=== PATIENT | male | born 1945 | race Caucasian/White ===

== ENCOUNTER 2019-06-06 12:36 | Inpatient (IN) ==
[2019-06-06 13:04] LABS: Hematocrit 49.3 % (42.0-52.0); Hemoglobin 16.8 gm/dL (13.5-18.0); Mean Corpuscular Hemoglobin 33.7 pg (27-31); Mean Corpuscular Hgb Conc 34.1 g/dl (32-36); Mean Platelet Volume 9.7 fl (8-11.3); Neutrophil # 14.3 K/mm3 (1.3-6.0); Neutrophil % 91.6 % (42-75.0); Platelet Count 324 K/mm3 (150-450); Red Blood Count 4.98 M/mm3 (4.7-6.0); White Blood Count 15.6 K/mm3 (4.0-10.5)
[2019-06-06] MEDS ORDERED: NORMAL SALINE 1,000 ML IV ONE (13:08)
[2019-06-06] MEDS ORDERED: DIPHTH,PERTUSS(ACELL),TET VAC 0.5 ML VIAL IM ONE (13:09)
[2019-06-06 13:12] LABS: Prothrombin Time (Patient) 10.3 Seconds (9.1-10.7)
[2019-06-06 13:15] LABS: INR 1.04 INR (0.92-1.08); Partial Thrombolplastin Time 25.9 Seconds (24-32)
[2019-06-06 13:22] LABS: ALT 57 U/L (19-67); AST 34 U/L (0-48); Albumin * 3.5 gm/dl (3.4-5.0); Alkaline Phosphatase * 106 U/L (50-170); Anion Gap 14.9 mmol/L (6.8-13.8); BUN/Creatinine Ratio 18.1 (9.0-21.6); Bilirubin, Total 1.2 mg/dL (0.0-1.1); Blood Urea Nitrogen 17 mg/dL (6-23); Ca. Corrected For Albumin 9.6 mg/dL (8.4-10.2); Calcium * 9.5 mg/dL (7.9-10.9); Carbon Dioxide 26.2 mmol/L (24-32.6); Chloride 102 mmol/L (97-106); Glucose * 151 mg/dL (70-110); Potassium 4.1 mmol/L (3.4-4.6); Sodium 139 mmol/L (132-142); Total Protein 7.5 gm/dL (6.2-8.2)
[2019-06-06 13:23] LABS: CK Total * 312 U/L (0-259); Troponin I Less than 0.017 ng/mL (0.00-0.10)
[2019-06-06 14:05] LABS: Urine Bilirubin Negative (NEGATIVE); Urine Blood 25 /ul (NEGATIVE); Urine Ketone 15 mg/dL (NEGATIVE); Urine Nitrite Negative (NEGATIVE); Urine Protein 30 mg/dL (NEGATIVE); Urine Specific Gravity >=1.030 SP.GR. (1.005-1.030); Urine Urobilinogen Normal (NORMAL); Urine pH 5.5 pH (5.0-7.0)
[2019-06-06 14:13] LABS: Urine Appearance Clear (CLEAR); Urine Bacteria TRACE; Urine Color Dark Yellow; Urine RBC 0-5 /hpf (0-5); Urine WBC TRACE /hpf (0-5)
[2019-06-06 14:17] LABS: Cocaine Ur Negative (NEGATIVE); Urine Barbiturate Negative (NEGATIVE); Urine Benzodiazepines Negative (NEGATIVE); Urine Opiates Negative (NEGATIVE); Urine PCP Negative (NEGATIVE); Urine THC Negative (NEGATIVE)
--- NOTE | 2019-06-06 14:49 | ERNOTE ---
Trauma/Assault HPI - Narrative Date of Service: 06/06/19 - General Stated Complaint: fall Time Seen by Provider: 06/06/19 12:41 Source: RN notes reviewed, EMS notes reviewed Exam Limitations: clinical condition - Immun/Allergies/Home Medications Immunizations: IMMUNIZATION HX Immunizations Up to Date unknown Allergies/Adverse Reactions: Allergies No Known Allergies Allergy (Verified 06/06/19 15:59) Home Medications: HOME MEDICATIONS Folic Acid 1 mg PO DAILY 07/25/14 [Last Taken Unknown] Thiamine HCl [Vitamin B-1] 100 mg PO DAILY 07/25/14 [Last Taken Unknown] Cholecalciferol (Vitamin D3) [Vitamin D-3] 2,000 unit PO DAILY 11/27/14 [Last Taken Unknown] Multivitamins [Multivitamin Aubrey] 1 cap PO DAILY 11/27/14 [Last Taken Unknown] naproxen 500 mg tablet 500 mg PO BID PRN #60 tab 07/10/18 [Last Taken Unknown] potassium chloride 20 mEq tablet,extended release(part/cryst) See Rx Instructions .ROUTE .COMPLEX #120 tablet 01/31/19 [Last Taken Unknown] diltiazem HCl 300 mg capsule,24 hr,extended release 300 mg PO DAILY #90 cap 04/30/19 [Last Taken Unknown] trazodone 50 mg tablet See Rx Instructions .ROUTE .COMPLEX #90 tablet 04/30/19 [Last Taken Unknown] Finasteride [Proscar] 5 mg PO DAILY 06/06/19 [Last Taken Unknown] - History of Present Illness Narrative: The patient is a 73 year old male who presents via [facility] after being found on the floor in his apartment just [employer]. There are associated symptoms of garbled speech and decreased responsiveness. The patient denies pain when questioned and does not localize to area. There are no alleviating factors. There are no aggravating factors. Previous treatments have included: none. The past medical history includes: AFib, BPH, Gout, HTN and alcohol abuse. The social history is positive for daily alcohol use. The patient has had no known ill contacts. [facility] reports that patient resides in apartment complex in which they were doing checks and upon the landlord entering the dwelling noted patient was lying on the floor. EMS reports there was an empty bottle of vodka near the patient. Patient had limited responsiveness, no vomitus noted around patient and patient was not soiled with urine or stool. Patient upon arrival following commands but has incomprehensible garbled speech. Patient answers appropriately when questioned yes and no questions. Review of Systems - Narrative Narrative: Unable to fully assess due to patient condition. Patient questioned regarding recent illness, pain or vomiting and denies with shaking of head no. Unable to fully assess patient cognition for understanding due to condition to validate appropriateness of answers. Medical History (Last Reviewed 06/06/19 @ 15:46 by GLENIS Condon) Constipation (Chronic) Sarbjit is 73 and has never had a screening colonoscopy. I recommended that he have one but he is afraid to have anesthesia and refuses. He has a Cologuard kit at home that he is never used and I strongly recommended that he use that at least. He understands that if that is positive and he would need a diagnostic colonoscopy. Screening for prostate cancer (Acute) Colon cancer screening (Acute) Medicare annual wellness visit, subsequent (Acute) Knee pain, right (Chronic) Alcoholism (Acute) Onset Date: Unknown [email or web address] Insomnia (Chronic) Onset Date: Unknown Hypertension (Chronic) Onset Date: Unknown BPH (benign prostatic hyperplasia) (Chronic) Onset Date: Unknown Atrial fibrillation (Chronic) Onset Date: Unknown Cataracts, bilateral Onset Date: Unknown Gout Onset Date: Unknown Surgical History: Surgical History (Last Reviewed 06/06/19 @ 15:46 by GLENIS Condon) H/O eye surgery Onset Date: ~12/25/18 both eyes: laser treatment History of cataract surgery Onset Date: ~2014 bilaeral Family History: Family History (Last Reviewed 06/06/19 @ 15:46 by GLENIS Condon) Father , age 80 Cancer liver cancer Mother , age 70's Cancer bladder cancer Brother , age 60's Alcoholism Social History: (Last Reviewed 06/06/19 @ 15:46 by GLENIS Condon) Social History: mcfp: No Marital status: Single lives independently: Yes household members: none current occupational status: retired current occupation: retired Highest education level completed: high school graduate Service: Yes branch: [employer] status: retired Tobacco: Smoking Status: Former smoker Alcohol: alcohol intake: current details: drinks 1/2 gallon vodka every 2 weeks Substance Use: substance use type: does not use Dietary Habits: caffeine: Yes Physical Exam - Physical Exam General Appearance: Present: alert, moderate distress Head Exam: Present: normal inspection, no evidence of injury Eye Exam: Normal inspection: bilateral, PERRL: bilateral, EOMI: bilateral - difficult to assess due to patient no fully following direction for test, Other: left - scleral edema to inner eye, approximately 9 o'clock with appearance of bleb Ears, Nose, Throat: Present: normal except -, dry mucous membranes Neck: Present: normal inspection, nontender, full range of motion Respiratory: Present: no respiratory distress, normal breath sounds, no accessory muscle use, chest nontender, lungs clear Cardiovascular/Chest: Present: tachycardia, irregularly irregular Gastrointestinal/Abdominal: Present: normal bowel sounds, nontender, nondistended, soft, no organomegaly Extremity Exam: Present: normal range of motion - bilateral upper and lower extremities to hip, knee, wrist, elbow and shoulders, no edema Neurological Exam: Present: alert, other - garbled incomprehesible speech, unable to thrust tongue forward, 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 Brother reported that patient kept to himself and is not uncommon for him to go for an extended duration without leaving his home. He has not spoken to him recently. Rn also spoke with howie who states she has not seen patient rec ently. Unable to determine a time of last known well. 06/06/19 15:15 Case reviewed with , will admit due to abnormal CT and exam findings consistent with CVA. I feel that elevation to WBC as well as lactic acid of 3.0 are associated with possible recent CVA and stress of lying on the floor unable to contact help. - Results and Orders Patient's Lab Results:: I have reviewed the patient's lab results. - Vital Signs Patient's Vital Signs:: I have reviewed the patient's vital signs. Vital Signs: Vital Signs 06/06/19 12:39 06/06/19 12:50 06/06/19 13:02 Temperature 36.4 C Pulse Rate 109 H 108 H 104 H Respiratory Rate 21 H 20 Blood Pressure 151/98 H 151/98 H O2 Sat by Pulse Oximetry 95 94 06/06/19 14:17 06/06/19 14:27 06/06/19 14:36 Temperature Pulse Rate 110 H 107 H 112 H Respiratory Rate 23 H 21 H 26 H Blood Pressure 166/102 H 163/97 H O2 Sat by Pulse Oximetry 97 93 94 - EKG EKG #1 EKG: atrial fibrillation - rate 110, premature ventricular contraction, nonspecific ST T wave changes EKG read: Reviewed by me - X-Ray X-Ray #1 X-Ray: chest Interpretation: Reviewed by me X-ray Comments: IMPRESSION: CARDIOMEGALY. LOW LUNG VOLUMES. CHRONIC ELEVATION OF THE RIGHT HEMIDIAPHRAGM. Electronically signed by Valdo Martínez M.D.. - CT/Ultrasound CT/Ultrasound Narrative: IMPRESSION: LEFT MCA TERRITORY INFARCT WITH NO SIGNIFICANT MASS EFFECT OR INTRACRANIAL HEMORRHAGE AT THIS TIME. REMOTE LEFT OCCIPITAL LOBE INFARCT. RIGHT MAXILLARY SINUSITIS. CHRONIC UNDERLYING ATROPHY AND WHITE MATTER MICROVASCULAR ISCHEMIC DISEASE. Electronically signed by Valdo Martínez M.D.. IMPRESSION: MILD MULTILEVEL CERVICAL SPONDYLOSIS. NO ACUTE OSSEOUS PATHOLOGY OTHERWISE IDENTIFIED. Electronically signed by Valdo Martínez M.D.. - Progress/Reassessment Chief Complaint: Fall Progress:: Unchanged Departure Clinical Impression: CVA (cerebral vascular accident) Qualifiers: CVA mechanism: unspecified Qualified Code(s): I63.9 - Cerebral infarction, unspecified - Departure Disposition: Still a patient Condition: Stable Critical Care Time - Critical Care Critical Time Spent:: No
[2019-06-06] MEDS ORDERED: ASPIRIN 300 MG SUPP.RECT RC ONE ×2 (15:11→17:30)
--- NOTE | 2019-06-06 15:39 | HP ---
Chief Complaint - Chief Complaint Date of Service: 06/06/19 Time of Service: 15:38 Chief Complaint: fall History of Present Illness: Sarbjit Ho is a 73-year-old white male, patient of Dr. Jorge, with past medical history of chronic atrial fibrillation, hypertension, gout, benign prostatic hypertrophy, alcoholism, who was admitted on 06/06/2019 because of a fall. Sarbjit is not able to express due to his acute cerebrovascular accident. My history is based on the emergency room report "Pt presents to the ED for reports of a fall for an unknown amount of time. Pt was brought into the ED via [facility], they stated that his land lord Christine Young was doing apartment inspections when she found the pt lying on the floor naked. He lives independently at [facility]. She states that she in unaware of any visitors. Initial presentation, pt is cool to the touch an shivering. Denies any pain, is non-verbal but is able to answer questions with a head nod. Lower and upper extremity stroke assessment is equal but weak. EMS reported an empty bottle of vodka near pt, pt denies any memory of falling and does state that he drinks daily. Initial blood glucose of 132. In the emergency room his blood work showed an elevated WBC of 15.6, normal platelet count CK of 212, BNP of 828. His EKG showed atrial fibrillation with rapid ventricular rate of 116. His chest x-ray showed no acute cardiopulmonary findings except for chronic elevation of hemidiaphragm. He was started on IV fluids and was admitted for further evaluation and treatment. His Head CTS showed left MCA territory infarct involving the left, fronto-temporal as well as part of parietal regions. There is encephalomalacia of remote left occipital lobe infarct. Medical History (Last Reviewed 06/06/19 @ 15:59 by Nemo Ortiz RN) Constipation (Chronic) Sarbjit is 73 and has never had a screening colonoscopy. I recommended that he have one but he is afraid to have anesthesia and refuses. He has a Cologuard kit at home that he is never used and I strongly recommended that he use that at least. He understands that if that is positive and he would need a diagnostic colonoscopy. Screening for prostate cancer (Acute) Colon cancer screening (Acute) Medicare annual wellness visit, subsequent (Acute) Knee pain, right (Chronic) Alcoholism (Acute) Onset Date: Unknown [email or web address] Insomnia (Chronic) Onset Date: Unknown Hypertension (Chronic) Onset Date: Unknown BPH (benign prostatic hyperplasia) (Chronic) Onset Date: Unknown Atrial fibrillation (Chronic) Onset Date: Unknown Cataracts, bilateral Onset Date: Unknown Gout Onset Date: Unknown Surgical History: Surgical History (Last Reviewed 06/06/19 @ 15:59 by Nemo Ortiz RN) H/O eye surgery Onset Date: ~12/25/18 both eyes: laser treatment History of cataract surgery Onset Date: ~2014 bilaeral Family History: Family History (Last Reviewed 06/06/19 @ 15:59 by Nemo Ortiz RN) Father , age 80 Cancer liver cancer Mother , age 70's Cancer bladder cancer Brother , age 60's Alcoholism Social History: (Last Reviewed 06/06/19 @ 15:59 by Nemo Ortiz RN) Social History: long-term: No Marital status: Single lives independently: Yes household members: none current occupational status: retired current occupation: retired Highest education level completed: high school graduate Service: Yes branch: [employer] status: retired Tobacco: Smoking Status: Former smoker Alcohol: alcohol intake: current details: drinks 1/2 gallon vodka every 2 weeks Substance Use: substance use type: does not use Dietary Habits: caffeine: Yes Review Of Systems (GEN) - Review of Systems Generalized/Overall Review: Present: Weakness. Absent: Chills, Fever EENTM: Absent: Blurred Vision Respiratory: Absent: Cough, Shortness of Breath Cardiac: Absent: Chest Pain, Edema, Palpitations Abdominal: Absent: Nausea, Vomiting Genitourinary: Absent: Urgency, Frequency Musculoskeletal: Absent: Joint Pain Neurological: Present: Weakness. Absent: Headache Skin: Absent: Lesions Misc: All systems neg except as marked - Nonverbal but would nod his head or would squeeze my fingers if he agrees. Immunizations: IMMUNIZATION HX Immunizations Up to Date unknown Allergies/Adverse Reactions: Allergies Allergy/AdvReac Type Severity Reaction Status Date / Time No Known Allergies Allergy Verified 06/06/19 15:59 Home Medications: HOME MEDICATIONS Folic Acid 1 mg PO DAILY 07/25/14 [Last Taken Unknown] Thiamine HCl [Vitamin B-1] 100 mg PO DAILY 07/25/14 [Last Taken Unknown] Cholecalciferol (Vitamin D3) [Vitamin D-3] 2,000 unit PO DAILY 11/27/14 [Last Taken Unknown] Multivitamins [Multivitamin Aubrey] 1 cap PO DAILY 11/27/14 [Last Taken Unknown] naproxen 500 mg tablet 500 mg PO BID PRN #60 tab 07/10/18 [Last Taken Unknown] potassium chloride 20 mEq tablet,extended release(part/cryst) See Rx Instructions .ROUTE .COMPLEX #120 tablet 01/31/19 [Last Taken Unknown] diltiazem HCl 300 mg capsule,24 hr,extended release 300 mg PO DAILY #90 cap 04/30/19 [Last Taken Unknown] trazodone 50 mg tablet See Rx Instructions .ROUTE .COMPLEX #90 tablet 04/30/19 [Last Taken Unknown] Finasteride [Proscar] 5 mg PO DAILY 06/06/19 [Last Taken Unknown] Exam - Exam Vital Signs: Vital Signs - Last Taken Temp 36.4 C 06/06/19 12:39 Pulse 99 06/06/19 15:24 Resp 25 H 06/06/19 15:24 BP 173/88 H 06/06/19 15:24 Pulse Ox 99 06/06/19 15:24 Constitutional: Present: Alert, Oriented x3, Cooperative ENT Exam: Present: hearing grossly normal Eye Exam: bilateral eye: normal inspection, PERRL, EOMI Neck: Present: supple. Absent: lymphadenopathy (L) Respiratory: Present: decreased breath sounds, No rales, No wheezing Cardiovascular/Chest: Present: no JVD, no murmur, irregularly irregular Abdomen: Present: Normal bowel sounds, soft, nontender, obese Extremity: Present: no calf tenderness, pedal edema Neurologic: Present: other - Awake alert oriented x3, shallow right nasolabial fold, patient is not able to bring out his tongue where he does have a weak gag reflex graft today, he was able to grossly move his upper and lower extremities. Diagnostic Studies: Abnormal Lab Results 06/06/19 06/06/19 06/06/19 Range/Units 12:53 12:53 12:53 WBC 15.6 H (4.0-10.5) K/mm3 MCH 33.7 H (27-31) pg Immature Gran % (Auto) 0.60 H (0.001-0.429) % Immature Gran # (Auto) 0.09 H (0.000-0.0310) K/mm3 Neutrophils % 91.6 H (42-75.0) % Lymphocytes % 2.4 L (20-51) % Neutrophils # 14.3 H (1.3-6.0) K/mm3 Lymphocytes # 0.37 L (1.5-3.5) k/mm3 Anion Gap 14.9 H (6.8-13.8) mmol/L Random Glucose 151 H (70-110) mg/dL Lactic Acid, Venous 3.0 H* (0.4-2.0) mmol/L Total Bilirubin 1.2 H (0.0-1.1) mg/dL Creatine Kinase 312 H (0-259) U/L B-Natriuretic Peptide (5-650) pg/mL Procalcitonin (0.05-0.50) ng/mL Urine Protein (NEGATIVE) mg/dL Urine Blood (NEGATIVE) /ul 06/06/19 06/06/19 06/06/19 Range/Units 12:53 12:53 13:55 WBC (4.0-10.5) K/mm3 MCH (27-31) pg Immature Gran % (Auto) (0.001-0.429) % Immature Gran # (Auto) (0.000-0.0310) K/mm3 Neutrophils % (42-75.0) % Lymphocytes % (20-51) % Neutrophils # (1.3-6.0) K/mm3 Lymphocytes # (1.5-3.5) k/mm3 Anion Gap (6.8-13.8) mmol/L Random Glucose (70-110) mg/dL Lactic Acid, Venous (0.4-2.0) mmol/L Total Bilirubin (0.0-1.1) mg/dL Creatine Kinase (0-259) U/L B-Natriuretic Peptide 878 H (5-650) pg/mL Procalcitonin 0.69 H (0.05-0.50) ng/mL Urine Protein 30 H (NEGATIVE) mg/dL Urine Blood 25 H (NEGATIVE) /ul Laboratory Results WBC 15.6 K/mm3 (4.0-10.5) H 06/06/19 12:53 RBC 4.98 M/mm3 (4.7-6.0) 06/06/19 12:53 Hgb 16.8 gm/dL (13.5-18.0) 06/06/19 12:53 Hct 49.3 % (42.0-52.0) 06/06/19 12:53 MCV 99.0 fl (78-100) 06/06/19 12:53 MCH 33.7 pg (27-31) H 06/06/19 12:53 MCHC 34.1 g/dl (32-36) 06/06/19 12:53 RDW 13.0 % (11.5-14.0) 06/06/19 12:53 Plt Count 324 K/mm3 (150-450) 06/06/19 12:53 MPV 9.7 fl (8-11.3) 06/06/19 12:53 Immature Gran % (Auto) 0.60 % (0.001-0.429) H 06/06/19 12:53 Immature Gran # (Auto) 0.09 K/mm3 (0.000-0.0310) H 06/06/19 12:53 Neutrophils % 91.6 % (42-75.0) H 06/06/19 12:53 Lymphocytes % 2.4 % (20-51) L 06/06/19 12:53 Monocytes % 5.3 % (0.0-9) 06/06/19 12:53 Eosinophils % 0.0 % (0.0-3.0) 06/06/19 12:53 Basophils % 0.1 % (0.0-1.0) 06/06/19 12:53 Nucleated RBC % 0.0 k/mm3 (0-1) 06/06/19 12:53 Neutrophils # 14.3 K/mm3 (1.3-6.0) H 06/06/19 12:53 Lymphocytes # 0.37 k/mm3 (1.5-3.5) L 06/06/19 12:53 Monocytes # 0.8 k/mm3 (0.0-1.0) 06/06/19 12:53 Eosinophils # 0.0 k/mm3 (0.0-0.7) 06/06/19 12:53 Absolute Basophils 0.0 k/mm3 (0.0-0.1) 06/06/19 12:53 PT 10.3 Seconds (9.1-10.7) 06/06/19 12:53 INR (Anticoag Therapy) 1.04 INR (0.92-1.08) 06/06/19 12:53 PTT (Inder) 25.9 Seconds (24-32) 06/06/19 12:53 Sodium 139 mmol/L (132-142) 06/06/19 12:53 Plasma Sodium 140 mmol/L (130-142) 06/06/19 12:53 Potassium 4.1 mmol/L (3.4-4.6) 06/06/19 12:53 Chloride 102 mmol/L (97-106) 06/06/19 12:53 Carbon Dioxide 26.2 mmol/L (24-32.6) 06/06/19 12:53 Anion Gap 14.9 mmol/L (6.8-13.8) H 06/06/19 12:53 BUN 17 mg/dL (6-23) 06/06/19 12:53 Creatinine 0.94 mg/dL (0.4-1.4) 06/06/19 12:53 Est GFR (Non-Af Amer) 83 mL/min (60-130) 06/06/19 12:53 BUN/Creatinine Ratio 18.1 (9.0-21.6) 06/06/19 12:53 Random Glucose 151 mg/dL (70-110) H 06/06/19 12:53 Lactic Acid, Venous 3.0 mmol/L (0.4-2.0) H* 06/06/19 12:53 Calcium 9.5 mg/dL (7.9-10.9) 06/06/19 12:53 Calcium Adj for Albumin 9.6 mg/dL (8.4-10.2) 06/06/19 12:53 Total Bilirubin 1.2 mg/dL (0.0-1.1) H 06/06/19 12:53 AST 34 U/L (0-48) 06/06/19 12:53 ALT 57 U/L (19-67) 06/06/19 12:53 Alkaline Phosphatase 106 U/L (50-170) 06/06/19 12:53 Ammonia Less than 17.0 mcmol/L (11-35) 06/06/19 12:53 Creatine Kinase 312 U/L (0-259) H 06/06/19 12:53 Troponin I Less than 0.017 ng/mL (0.00-0.10) 06/06/19 12:53 B-Natriuretic Peptide 878 pg/mL (5-650) H 06/06/19 12:53 Total Protein 7.5 gm/dL (6.2-8.2) 06/06/19 12:53 Albumin 3.5 gm/dl (3.4-5.0) 06/06/19 12:53 Procalcitonin 0.69 ng/mL (0.05-0.50) H 06/06/19 12:53 Urine Color Dark yellow 06/06/19 13:55 Urine Appearance Clear (CLEAR) 06/06/19 13:55 Urine pH 5.5 pH (5.0-7.0) 06/06/19 13:55 Ur Specific [place] >=1.030 SP.GR. (1.005-1.030) 06/06/19 13:55 Urine Protein 30 mg/dL (NEGATIVE) H 06/06/19 13:55 Urine Glucose (UA) Negative mg/dL (NEGATIVE) 06/06/19 13:55 Urine Ketones 15 mg/dL (NEGATIVE) 06/06/19 13:55 Urine Blood 25 /ul (NEGATIVE) H 06/06/19 13:55 Urine Nitrate Negative (NEGATIVE) 06/06/19 13:55 Urine Bilirubin Negative mg/dl (NEGATIVE) 06/06/19 13:55 Prot Sulfosalicylic Acd 1+ mg/dL (0) 06/06/19 13:55 Urine Urobilinogen Normal EU/dl (NORMAL) 06/06/19 13:55 Ur Leukocyte Esterase Negative /ul (NEGATIVE) 06/06/19 13:55 Urine RBC 0-5 /hpf (0-5) 06/06/19 13:55 Urine WBC Trace /hpf (0-5) 06/06/19 13:55 Ur Epithelial Cells 0-5 /hpf (0-5) 06/06/19 13:55 Urine Bacteria Trace (NONE) 06/06/19 13:55 Urine Culture Comments Culture to follow 06/06/19 13:55 Urine Opiates Screen Negative (NEGATIVE) 06/06/19 13:55 Barbiturate Screen Negative (NEGATIVE) 06/06/19 13:55 Ur Phencyclidine Scrn Negative (NEGATIVE) 06/06/19 13:55 Urine Amphetamine Negative (NEGATIVE) 06/06/19 13:55 U Benzodiazepines Scrn Negative (NEGATIVE) 06/06/19 13:55 Urine Cocaine Screen Negative (NEGATIVE) 06/06/19 13:55 Urine Marijuana (THC) Negative (NEGATIVE) 06/06/19 13:55 Ethyl Alcohol 3.0 mg/dL (0.0-10.0) 06/06/19 12:53 Assessment/Plan - Narrative Narrative: Vic Schaffer is a 73-year-old white male patient of Dr. Jorge was found on the floor for an undetermined length of time and was brought by EMS to our emergency room. His head CT scan showed an acute cerebrovascular accident involving the left middle cerebral artery territory. We will get speech therapy/physical therapy/Occupational Therapy evaluation and treatment. We will get an MRI of the brain in the morning. We will schedule him a carotid ultrasound as well as an echocardiogram with bubble study. We will start him on aspirin RC and start atorvastatin as soon as oral medications is deemed safe to be administered. . He has chronic atrial fibrillation and his past medical history and he is not on an anticoagulant. He will likely need anticoagulation as his CVA could be cardioembolic unless there is really a serious contraindication. We will review his medical records for such. - Assessment/Plan (1) Acute ischemic cerebrovascular accident (CVA) involving left middle cerebral artery territory Problem: Acute (2) Alcoholism Problem: Acute (3) Hypertension Problem: Chronic Qualifiers: Hypertension type: essential hypertension Qualified Code(s): I10 - Essential (primary) hypertension (4) BPH (benign prostatic hyperplasia) Problem: Chronic (5) Atrial fibrillation Problem: Chronic Qualifiers: Atrial fibrillation type: chronic
[2019-06-06] MEDS: ENOXAPARIN SODIUM 40 MG/0.4 ML SYRG SC SCH (17:29)
[2019-06-06] MEDS: DEXTROSE 5%-NORMAL SALINE 1,000 ML IV PRN (18:25)
[2019-06-07] MEDS: DEXTROSE 5%-NORMAL SALINE 1,000 ML IV PRN (04:23)
[2019-06-07 06:31] LABS: Hematocrit 46.8 % (42.0-52.0); Hemoglobin 16.3 gm/dL (13.5-18.0); Mean Cell Volume 96.7 fl (78-100); Mean Corpuscular Hemoglobin 33.7 pg (27-31); Mean Corpuscular Hgb Conc 34.8 g/dl (32-36); Mean Platelet Volume 9.9 fl (8-11.3); Neutrophil # 11.8 K/mm3 (1.3-6.0); Platelet Count 300 K/mm3 (150-450); Red Blood Count 4.84 M/mm3 (4.7-6.0); Red Cell Distribution Width 12.9 % (11.5-14.0); White Blood Count 13.7 K/mm3 (4.0-10.5)
[2019-06-07 06:36] LABS: Anion Gap 11.8 mmol/L (6.8-13.8); BUN/Creatinine Ratio 13.8 (9.0-21.6); Calcium * 8.2 mg/dL (7.9-10.9); Carbon Dioxide 27.7 mmol/L (24-32.6); Estimated Creat Clear 107.9
[2019-06-07 06:52] LABS: Potassium 2.5 mmol/L (3.4-4.6)
[2019-06-07] MEDS: POTASSIUM CHLORIDE IN WATER 100 ML IV SCH ×3 (09:47→11:59)
--- NOTE | 2019-06-07 10:52 | PN ---
Subjective - Date and Time Seen Date: 06/07/19 Time: 10:46 Subjective Narrative: patient continue to have problem with expressing himself. for MRI/Echo/CUS today Objective - Review of Systems Generalized/Overall Review: Reports: Weakness. Denies: Chills, Fever EENTM: Denies: Blurred Vision Respiratory: Denies: Cough, Shortness of Breath Cardiac: Denies: Chest Pain, Edema, Palpitations Abdominal: Denies: Nausea, Vomiting Genitourinary Symptoms: Denies: Urgency, Frequency Musculoskeletal Complaints: Denies: Joint Pain Neurological: Denies: Headache Skin: Denies: Lesions, Rash Misc: All systems neg except as marked - patient unable to express himself but is able to undestand by nodding - Vitals Vitals: Last Vital Signs Temp 37.9 C 06/07/19 10:00 Pulse 96 06/07/19 10:00 Resp 19 06/07/19 10:00 BP 155/98 H 06/07/19 10:00 Pulse Ox 97 06/07/19 10:00 - Abnormal Lab Findings Abnormal Lab Findings: Abnormal Lab Results 06/06/19 06/06/19 06/06/19 Range/Units 12:53 12:53 12:53 WBC 15.6 H (4.0-10.5) K/mm3 MCH 33.7 H (27-31) pg Immature Gran % (Auto) 0.60 H (0.001-0.429) % Immature Gran # (Auto) 0.09 H (0.000-0.0310) K/mm3 Neutrophils % 91.6 H (42-75.0) % Lymphocytes % 2.4 L (20-51) % Neutrophils # 14.3 H (1.3-6.0) K/mm3 Lymphocytes # 0.37 L (1.5-3.5) k/mm3 ESR (0-10) mm/hr Potassium (3.4-4.6) mmol/L Anion Gap 14.9 H (6.8-13.8) mmol/L Random Glucose 151 H (70-110) mg/dL Lactic Acid, Venous 3.0 H* (0.4-2.0) mmol/L Total Bilirubin 1.2 H (0.0-1.1) mg/dL Creatine Kinase 312 H (0-259) U/L C-Reactive Prot, Quant (0.0-0.9) mg/dL B-Natriuretic Peptide (5-650) pg/mL Procalcitonin (0.05-0.50) ng/mL Urine Protein (NEGATIVE) mg/dL Urine Blood (NEGATIVE) /ul 06/06/19 06/06/19 06/06/19 Range/Units 12:53 12:53 12:53 WBC (4.0-10.5) K/mm3 MCH (27-31) pg Immature Gran % (Auto) (0.001-0.429) % Immature Gran # (Auto) (0.000-0.0310) K/mm3 Neutrophils % (42-75.0) % Lymphocytes % (20-51) % Neutrophils # (1.3-6.0) K/mm3 Lymphocytes # (1.5-3.5) k/mm3 ESR 21 H (0-10) mm/hr Potassium (3.4-4.6) mmol/L Anion Gap (6.8-13.8) mmol/L Random Glucose (70-110) mg/dL Lactic Acid, Venous (0.4-2.0) mmol/L Total Bilirubin (0.0-1.1) mg/dL Creatine Kinase (0-259) U/L C-Reactive Prot, Quant (0.0-0.9) mg/dL B-Natriuretic Peptide 878 H (5-650) pg/mL Procalcitonin 0.69 H (0.05-0.50) ng/mL Urine Protein (NEGATIVE) mg/dL Urine Blood (NEGATIVE) /ul 06/06/19 06/06/19 06/07/19 Range/Units 12:53 13:55 06:26 WBC 13.7 H (4.0-10.5) K/mm3 MCH 33.7 H (27-31) pg Immature Gran % (Auto) 0.50 H (0.001-0.429) % Immature Gran # (Auto) 0.07 H (0.000-0.0310) K/mm3 Neutrophils % 86.0 H (42-75.0) % Lymphocytes % 6.6 L (20-51) % Neutrophils # 11.8 H (1.3-6.0) K/mm3 Lymphocytes # 0.90 L (1.5-3.5) k/mm3 ESR (0-10) mm/hr Potassium (3.4-4.6) mmol/L Anion Gap (6.8-13.8) mmol/L Random Glucose (70-110) mg/dL Lactic Acid, Venous (0.4-2.0) mmol/L Total Bilirubin (0.0-1.1) mg/dL Creatine Kinase (0-259) U/L C-Reactive Prot, Quant 8.0 H (0.0-0.9) mg/dL B-Natriuretic Peptide (5-650) pg/mL Procalcitonin (0.05-0.50) ng/mL Urine Protein 30 H (NEGATIVE) mg/dL Urine Blood 25 H (NEGATIVE) /ul 06/07/19 06/07/19 Range/Units 06:26 06:26 WBC (4.0-10.5) K/mm3 MCH (27-31) pg Immature Gran % (Auto) (0.001-0.429) % Immature Gran # (Auto) (0.000-0.0310) K/mm3 Neutrophils % (42-75.0) % Lymphocytes % (20-51) % Neutrophils # (1.3-6.0) K/mm3 Lymphocytes # (1.5-3.5) k/mm3 ESR (0-10) mm/hr Potassium 2.5 L D (3.4-4.6) mmol/L Anion Gap (6.8-13.8) mmol/L Random Glucose 119 H (70-110) mg/dL Lactic Acid, Venous (0.4-2.0) mmol/L Total Bilirubin (0.0-1.1) mg/dL Creatine Kinase 339 H (0-259) U/L C-Reactive Prot, Quant (0.0-0.9) mg/dL B-Natriuretic Peptide (5-650) pg/mL Procalcitonin (0.05-0.50) ng/mL Urine Protein (NEGATIVE) mg/dL Urine Blood (NEGATIVE) /ul - Exam Constitutional: Present: Alert, Oriented x3, Cooperative ENT Exam: Present: hearing grossly normal Neck: Present: supple. Absent: lymphadenopathy (R), lymphadenopathy (L) Respiratory: Present: decreased breath sounds, No rales, No wheezing Cardiovascular/Chest: Present: no JVD, no murmur, irregularly irregular Abdomen: Present: Normal bowel sounds, soft, nontender, nondistended Extremity: Present: no pedal edema, no calf tenderness Neurologic: Present: no motor/sensory deficits - grossly, oriented x 3, facial droop, other - expressive aphasia vs dysarthria Cauti Physician Documentation - Urinary Catheter Management Condom Date of Insertion: 06/06/19 Time of Insertion: 17:30 Assessment/Plan Plan Narrative: Sarbjit was admitted for Acute CVA involving the LMCA territory wit expressive aphasia vs motor dysarthria. He was started on ASA yesterday NV but will likely need anticoagualtion due to his chromic AFib but will delay inititiation to prevent converting his ischemic stroke to a hemorrhagic one. He is for ST/PT/OT eval and tx today. Will follow up MRI/Echo/CUS results. - Problems/Diagnosis (1) Acute ischemic cerebrovascular accident (CVA) involving left middle cerebral artery territory Problem: Acute Narrative: got ASA NV yesterday. for MRI/CUS/Echo with bubble study. He may need anticoagulation as this could be cardioembolic from his AFib but will likely delay it for 2-4 weeks due to increase risk of converting his ischemic stroke to an hemorrhagic one. (2) Expressive aphasia Problem: Acute Narrative: versus motor dysarthria (3) Alcoholism Problem: Acute Narrative: on alcohol withdrawal protocol (4) Hypertension Problem: Chronic Qualifiers: Hypertension type: essential hypertension Qualified Code(s): I10 - Essential (primary) hypertension (5) BPH (benign prostatic hyperplasia) Problem: Chronic (6) Atrial fibrillation Problem: Chronic Qualifiers: Atrial fibrillation type: chronic (7) Elevated CK Problem: Acute
[2019-06-07] MEDS: POTASSIUM CHLORIDE 20 MEQ in DEXTROSE 5%-NORMAL SALINE 990 ML IV SCH ×3 (13:07→21:39)
[2019-06-07] MEDS ORDERED: DILTIAZEM HCL 120 MG CAP.SR.24H PO SCH (14:00)
[2019-06-07] MEDS: FOLIC ACID 1 MG TABLET PO SCH (15:17)
[2019-06-07] MEDS: FINASTERIDE 5 MG TABLET PO SCH (15:19)
[2019-06-07] MEDS: ENOXAPARIN SODIUM 40 MG/0.4 ML SYRG SC SCH (16:44)
[2019-06-07] MEDS: POTASSIUM CHLORIDE 20 MEQ TABLET.SA PO SCH (20:47)
[2019-06-08] MEDS ORDERED: DILTIAZEM HCL 180 MG CAP.SR.24H PO SCH (03:30)
[2019-06-08] MEDS: POTASSIUM CHLORIDE 20 MEQ in DEXTROSE 5%-NORMAL SALINE 990 ML IV SCH ×3 (05:48→22:23)
[2019-06-08 06:43] LABS: Hematocrit 48.9 % (42.0-52.0); Hemoglobin 16.6 gm/dL (13.5-18.0); Mean Corpuscular Hemoglobin 33.6 pg (27-31); Mean Corpuscular Hgb Conc 33.9 g/dl (32-36); Neutrophil # 8.4 K/mm3 (1.3-6.0); Neutrophil % 80.3 % (42-75.0); Platelet Count 289 K/mm3 (150-450); Red Blood Count 4.94 M/mm3 (4.7-6.0); Red Cell Distribution Width 13.1 % (11.5-14.0); White Blood Count 10.5 K/mm3 (4.0-10.5)
[2019-06-08 06:53] LABS: Anion Gap 9.8 mmol/L (6.8-13.8); BUN/Creatinine Ratio 9.6 (9.0-21.6); Calcium * 8.4 mg/dL (7.9-10.9); Carbon Dioxide 29.3 mmol/L (24-32.6); Estimated Creat Clear 84.5; Potassium 3.1 mmol/L (3.4-4.6)
[2019-06-08] MEDS ORDERED: DILTIAZEM HCL 300 MG PO SCH (09:00)
[2019-06-08] MEDS: POTASSIUM CHLORIDE 20 MEQ TABLET.SA PO SCH ×2 (09:09→21:28)
[2019-06-08] MEDS: THIAMINE HCL 100 MG TABLET PO SCH (09:10)
[2019-06-08] MEDS: FOLIC ACID 1 MG TABLET PO SCH (09:10)
[2019-06-08] MEDS: FINASTERIDE 5 MG TABLET PO SCH (09:11)
--- NOTE | 2019-06-08 09:19 | PN ---
Subjective - Date and Time Seen Date: 06/08/19 Time: 08:15 Subjective Narrative: Patient unable to answer questions, but he is alert and follows directions appropriately. He had some high blood pressure overnight and his home Cardizem dose was restarted. No new concerns. Objective - Review of Systems Generalized/Overall Review: Denies: Fever Respiratory: Denies: Cough, Shortness of Breath Cardiac: Denies: Chest Pain, Edema Abdominal: Denies: Nausea, Vomiting Genitourinary Symptoms: Reports: No Symptoms Reported Neurological: Reports: Weakness - leg, Other - Dysphasia - Vitals Vitals: Last Vital Signs Temp 36.1 C 06/08/19 02:26 Pulse 97 06/08/19 04:48 Resp 24 H 06/08/19 02:26 BP 162/94 H 06/08/19 03:46 Pulse Ox 92 L 06/08/19 02:26 - Abnormal Lab Findings Abnormal Lab Findings: Abnormal Lab Results 06/08/19 06/08/19 Range/Units 06:37 06:37 MCH 33.6 H (27-31) pg Immature Gran % (Auto) 0.50 H (0.001-0.429) % Immature Gran # (Auto) 0.05 H (0.000-0.0310) K/mm3 Neutrophils % 80.3 H (42-75.0) % Lymphocytes % 9.9 L (20-51) % Neutrophils # 8.4 H (1.3-6.0) K/mm3 Lymphocytes # 1.04 L (1.5-3.5) k/mm3 Potassium 3.1 L (3.4-4.6) mmol/L Random Glucose 121 H (70-110) mg/dL - Exam Constitutional: Present: Alert, No distress, Elderly Respiratory: Present: lungs clear, normal breath sounds Cardiovascular/Chest: Present: regular rate, rhythm Abdomen: Present: soft, nontender Extremity: Present: other - Limited ability to lift legs off the bed. No deficit in range of motion of arms.. Absent: lower extremity edema Neurologic: Present: aphasia Eye contact: Present: good eye contact Cauti Physician Documentation - Urinary Catheter Management Condom Date of Insertion: 06/07/19 Time of Insertion: 12:00 Assessment/Plan - Problems/Diagnosis (1) Acute ischemic cerebrovascular accident (CVA) involving left middle cerebral artery territory Problem: Acute Narrative: Today is day #3 of admission (admitted 06/06). He has been working with PT and OT, and anticipate he will go to a rehab facility on discharge. Would like to keep his blood pressure right where it is right now, to avoid worsening of his hemorrhagic stroke, or insufficient blood flow in the region of his recent stroke. He was independent at baseline. (2) Expressive aphasia Problem: Acute Narrative: Continue OT. (3) Hypertension Problem: Chronic Qualifiers: Hypertension type: essential hypertension Qualified Code(s): I10 - Essential (primary) hypertension Narrative: His home dose of Cardizem, 300 mg, was restarted this morning for elevated blood pressures overnight. Would like to keep his pressures around 150/90. (4) Atrial fibrillation Problem: Chronic Qualifiers: Atrial fibrillation type: chronic Narrative: Continue Cardizem. He is not anticoagulated right now as he just had a hemorrhagic stroke. (5) Alcoholism Problem: Acute Narrative: Chart review shows he has a history of alcoholism. A empty bottle of liquor was found next to him by EMS. CIWA scores haven't been obtained yet today, but his highest score has been 6. (6) Hypokalemia Problem: Acute Narrative: K+ this morning was 3.1. will need to ensure he can swallow po replacement, and if not, will replace via IV.
[2019-06-09] MEDS: POTASSIUM CHLORIDE 20 MEQ in DEXTROSE 5%-NORMAL SALINE 990 ML IV SCH ×3 (06:46→23:50)
[2019-06-09 07:45] LABS: Albumin * 2.8 gm/dl (3.4-5.0); Anion Gap 8.9 mmol/L (6.8-13.8); Bilirubin, Total 0.7 mg/dL (0.0-1.1); Ca. Corrected For Albumin 9.1 mg/dL (8.4-10.2); Calcium * 8.5 mg/dL (7.9-10.9); Carbon Dioxide 28.5 mmol/L (24-32.6); Potassium 3.4 mmol/L (3.4-4.6); Total Protein 6.4 gm/dL (6.2-8.2)
--- NOTE | 2019-06-09 09:24 | PN ---
Subjective - Date and Time Seen Date: 06/09/19 Time: 09:45 Subjective Narrative: He remains aphasic. He was able to walk 100 feet with physical therapy. No other complaints. He'd prefer to go home after DC. Objective - Review of Systems Generalized/Overall Review: Denies: Fever Respiratory: Reports: Cough, Shortness of Breath Cardiac: Reports: Chest Pain. Denies: Edema Abdominal: Reports: Vomiting, Abdominal Pain Genitourinary Symptoms: Reports: No Symptoms Reported Neurological: Reports: Weakness, Other - aphasia - Vitals Vitals: Last Vital Signs Temp 36.7 C 06/08/19 23:00 Pulse 89 06/09/19 07:00 Resp 16 06/09/19 07:00 BP 146/72 06/09/19 07:00 Pulse Ox 96 06/09/19 07:00 - Abnormal Lab Findings Abnormal Lab Findings: Abnormal Lab Results 06/09/19 Range/Units 07:13 Random Glucose 119 H (70-110) mg/dL Albumin 2.8 L (3.4-5.0) gm/dl - Exam Constitutional: Present: Alert, Cooperative, No distress Respiratory: Present: lungs clear, normal breath sounds Cardiovascular/Chest: Present: regular rate, rhythm Abdomen: Present: soft, nontender Extremity: Absent: lower extremity edema Eye contact: Present: good eye contact, other - unable to speak Cauti Physician Documentation - Urinary Catheter Management Condom Date of Insertion: 06/07/19 Time of Insertion: 12:00 Date of Removal: 06/08/19 Time of Removal: 08:00 Assessment/Plan - Problems/Diagnosis (1) Acute ischemic cerebrovascular accident (CVA) involving left middle cerebral artery territory Problem: Acute Narrative: He is working with PT, and able to walk. Per discussion with his therapist, he does not appear strong enough to be independent yet, but Mr Ho strongly prefers to return home after DC. He denies difficulty swallowing, but he had deficits on his swallow eval with speech therapy. He was being fed by nursing staff this morning, so his ability to maintain nutrition on his own is questionable. Is currently given a nectar thick/pureed diet, per his speech therapy eval. Will continue PT/OT, and daily discussions regarding discharge planning. He is unable to speak, but he nodded "yes" when asked if he was able to write. I do not know if this has actually been tested. If he continues to decline rehab placement on DC, will need to ensure he is able to perform ADLs. His CVA was hemorrhagic, and anticoagulation has been held. Will need to discuss risks vs benefits of restarting with him. he is anticoagulated for afib. (2) Expressive aphasia Problem: Acute (3) Hypertension Problem: Chronic Qualifiers: Hypertension type: essential hypertension Qualified Code(s): I10 - Marilyn fajardomone (primary) hypertension Narrative: BP 129/92 this morning, which has been a gradual decrease since admission on 06/06. Would prefer his BP to be in the 140's/90's, to avoid reduced blood flow in the region of his recent stroke. If his BP reduced further, will lower his cardizem dose. (4) Atrial fibrillation Problem: Chronic Qualifiers: Atrial fibrillation type: chronic Narrative: Is prescribed 300 mg daily cardizem. Recorded HR this morning of 104. (5) Alcoholism Problem: Acute Narrative: CIWA score today of 0. He is receiving daily thiamine. (6) Hypokalemia Problem: Acute Narrative: K+ today of 3.4, up from 3.1 yesterday. Continue po replacement with 40 bid KCl. Recheck tomorrow.
[2019-06-09] MEDS: FOLIC ACID 1 MG TABLET PO SCH (09:54)
[2019-06-09] MEDS: THIAMINE HCL 100 MG TABLET PO SCH (09:54)
[2019-06-09] MEDS: DILTIAZEM HCL PO SCH ×2 (09:54)
[2019-06-09] MEDS: POTASSIUM CHLORIDE 20 MEQ TABLET.SA PO SCH ×2 (09:55→20:30)
[2019-06-09] MEDS: FINASTERIDE 5 MG TABLET PO SCH (09:56)
[2019-06-10] MEDS: POTASSIUM CHLORIDE 20 MEQ in DEXTROSE 5%-NORMAL SALINE 990 ML IV SCH (07:16)
[2019-06-10 07:36] LABS: Anion Gap 13.5 mmol/L (6.8-13.8); BUN/Creatinine Ratio 9.4 (9.0-21.6); Calcium * 9.3 mg/dL (7.9-10.9); Carbon Dioxide 26.6 mmol/L (24-32.6); Estimated Creat Clear 82.5; Potassium 4.1 mmol/L (3.4-4.6)
--- NOTE | 2019-06-10 07:47 | PN ---
Subjective - Date and Time Seen Date: 06/10/19 Time: 07:44 Subjective Narrative: He reports his speech isn't changing. He is feeding himself pureed breakfast. No new concerns. Objective - Review of Systems Generalized/Overall Review: Denies: Fever Respiratory: Denies: Cough, Shortness of Breath Cardiac: Denies: Chest Pain, Edema Abdominal: Denies: Vomiting Genitourinary Symptoms: Reports: No Symptoms Reported Musculoskeletal Complaints: Reports: No Symptoms Reported Neurological: Reports: Other - aphasia Skin: Reports: Other - purplish discoloration to bilateral lower legs - Vitals Vitals: Last Vital Signs Temp 36.5 C 06/10/19 06:23 Pulse 79 06/10/19 06:23 Resp 16 06/10/19 06:23 BP 163/88 H 06/10/19 06:23 Pulse Ox 96 06/10/19 06:23 - Abnormal Lab Findings Abnormal Lab Findings: Abnormal Lab Results 06/09/19 06/10/19 Range/Units 07:13 07:10 Plasma Sodium 143 H (130-142) mmol/L Random Glucose 119 H 137 H (70-110) mg/dL Albumin 2.8 L (3.4-5.0) gm/dl - Exam Constitutional: Present: Alert, Cooperative, Elderly Respiratory: Present: normal breath sounds, no respiratory distress Cardiovascular/Chest: Present: regular rate, rhythm Abdomen: Present: soft, nontender Extremity: Absent: lower extremity edema Skin Exam: Present: other - red/purple discoloration of bilateral lower legs Eye contact: Present: good eye contact Thoughts: Present: other - aphasic Cauti Physician Documentation - Urinary Catheter Management Condom Date of Insertion: 06/07/19 Time of Insertion: 12:00 Date of Removal: 06/08/19 Time of Removal: 08:00 Assessment/Plan - Problems/Diagnosis (1) Acute ischemic cerebrovascular accident (CVA) involving left middle cerebral artery territory Problem: Acute Narrative: Was admitted on 06/06 after being found at home via welfare check with garbled speech, and imaging revealed "IMPRESSION: LARGE AREA OF RESTRICTED DIFFUSION IN THE LEFT FRONTAL LOBE IN THE LEFT MCA DISTRIBUTION CONSISTENT WITH ACUTE/SUBACUTE INFARCTION. SOME BLOOMING ARTIFACT SEEN WITHIN THE CENTRAL PORTION OF THIS INFARCT SUGGESTING LATE SUBACUTE BLOOD PRODUCTS INDICATIVE OF MILD HEMORRHAGIC CONVERSION. HOWEVER, NO ASSOCIATED MASS EFFECT OR COMPLICATION." He is able to ambulate with PT, and was feeding himself pureed breakfast today. Speech eval showed "Dysphagia Evaluation Summary: The patient displayed severe s/s of aspiration with thin liquids, characterized by multiple wet, reflexive coughing. The patient displayed moderate-severe s/s of oral dysphagia with soft textures, characterized by difficulty chewing, oral holding, and pocketing. The patient should consume nectar thickened liquids, and pureed textures." He denies problems swallowing, but his evaluation says otherwise. Appreciate our speech and physical therapists evaluations and recommendations. Mr. Ho would very much prefer to go home after DC, but he lives alone. I suspect he may not be able to maintain nutrition and hydration with his deficits. He is also at risk to aspirate. Would also appreciate speech therapy evaluation to help determine his cognitive status. If he agrees to rehab placement, he could be DC'd tomorrow. (2) Expressive aphasia Problem: Acute (3) Hypertension Problem: Chronic Qualifiers: Hypertension type: essential hypertension Qualified Code(s): I10 - Essential (primary) hypertension Narrative: With his recent hemorragic stroke, would like his BP to be around 150/90. Highly elevated pressure could worsen his hemorrhage. "Normal" BP may be too low for him, and reduce blood flow in the penumbra of his CVA. He is prescribed 300 mg cardizem for his afib, which has been managing his BP thus far. (4) Atrial fibrillation Problem: Chronic Qualifiers: Atrial fibrillation type: chronic Narrative: HR has been controlled on his home 300 mg cardizem. Holding lovenox due to recent hemorrhagic CVA. Chart review shows he was not anticoagulated prior to this admission. (5) Alcoholism Problem: Acute Narrative: Per chart review, an empty bottle of liquor was found next to him by EMS. Ciwa scores have been 0 yesterday and today, and he does not appear to be withdrawing. Continue 100 mg thiamine daily. (6) Hypokalemia Problem: Resolved Narrative: K+ this morning of 4.1, and IV KCl was stopped. Will continue po replacement for now, as he's been getting both po and IV KCl since admission. Can DC if he maintains appropriate levels.
[2019-06-10] MEDS: DILTIAZEM HCL PO SCH ×2 (09:16)
[2019-06-10] MEDS: POTASSIUM CHLORIDE 20 MEQ TABLET.SA PO SCH ×2 (09:16→20:39)
[2019-06-10] MEDS: FOLIC ACID 1 MG TABLET PO SCH (09:16)
[2019-06-10] MEDS: THIAMINE HCL 100 MG TABLET PO SCH (09:16)
[2019-06-10] MEDS: FINASTERIDE 5 MG TABLET PO SCH (09:16)
[2019-06-11] MEDS: FOLIC ACID 1 MG TABLET PO SCH (08:11)
[2019-06-11] MEDS: DILTIAZEM HCL PO SCH ×2 (08:11)
[2019-06-11] MEDS: THIAMINE HCL 100 MG TABLET PO SCH (08:13)
[2019-06-11] MEDS: FINASTERIDE 5 MG TABLET PO SCH (08:13)
[2019-06-11] MEDS: POTASSIUM CHLORIDE 20 MEQ TABLET.SA PO SCH (08:13)
--- NOTE | 2019-06-11 10:53 | ECHO ---
This report is available in the EMR
--- NOTE | 2019-06-11 12:47 | DS ---
Transfer Discharge Summary - Diagnosis(s)/Problems (1) Acute ischemic cerebrovascular accident (CVA) involving left middle cerebral artery territory Problem: Acute (2) Hypertension Problem: Chronic (3) Atrial fibrillation Problem: Chronic (4) Alcoholism Problem: Chronic - Course Description of Stay: Sarbjit Ho is a 73-year-old male who presented to the emergency room per EMS following an apparent stroke. Had been on the floor for an undetermined period of time. His white count and his lactic acid levels were elevated on admission. The CT scan of the head shows a left middle cerebral artery infarction with secondary small quantity bleeding. He has been here through the weekend. He is to go to [facility] stroke rehab unit today. He is reluctant to go and wants to go home but he is not independent enough to go home and there are no relatives to stay with him. Going home is not an option. The other option was detention. We encouraged him to go to the stroke rehab center because he will get home quicker with that. He has total expressive aphasia orally. His receptive functions appear to be intact. He has good movement of both arms and legs and did walk with PT today. Lab work shows a white count has returned to normal as the differential has as well. Lactic acid level returned to normal. He does not appear to have been any extension of the stroke during his stay. Procedures Performed: none - Medications Medications: Active Medications Diltiazem HCl 180 mg/ (Diltiazem HCl 120 mg) 300 mg PO DAILY [facility] Stop: 07/09/19 09:01 Last Admin: 06/11/19 08:11 Dose: 300 mg Documented by: Enoxaparin Sodium (Lovenox) 40 mg SC Q24H [facility] Stop: 07/06/19 16:31 Last Admin: 06/07/19 16:44 Dose: 40 mg Documented by: Finasteride (Proscar) 5 mg PO DAILY [facility] Stop: 07/07/19 14:01 Last Admin: 06/11/19 08:13 Dose: 5 mg Documented by: Folic Acid (Folic Acid) 1 mg PO DAILY [facility] Stop: 07/07/19 14:01 Last Admin: 06/11/19 08:11 Dose: 1 mg Documented by: Potassium Chloride (K-Dur) 40 meq PO BID [facility] Stop: 07/07/19 21:01 Last Admin: 06/11/19 08:13 Dose: 40 meq Documented by: Thiamine HCl (Vitamin B-1) 100 mg PO DAILY [facility] Stop: 07/08/19 09:01 Last Admin: 06/11/19 08:13 Dose: 100 mg Documented by: Discontinued Medications Aspirin (Aspirin Suppository) 300 mg RC ONCE ONE Stop: 06/06/19 15:12 Last Admin: 06/06/19 17:29 Dose: Not Given Documented by: Aspirin (Aspirin Suppository) 300 mg RC ONCE ONE Stop: 06/06/19 17:31 Last Admin: 06/06/19 17:29 Dose: 300 mg Documented by: Diltiazem HCl (Cardizem Cd) 120 mg PO Q24H [facility] Stop: 07/07/19 14:01 Last Admin: 06/07/19 15:17 Dose: 120 mg Documented by: Diltiazem HCl (Cardizem Cd) 300 mg PO Q24H [facility] Stop: 07/08/19 03:31 Last Admin: 06/08/19 03:46 Dose: 300 mg Documented by: Diphtheria/Tetanus/Acell Pertussis (Adacel) 0.5 ml IM .ONCE ONE Stop: 06/06/19 13:10 Last Admin: 06/06/19 13:41 Dose: 0.5 ml Documented by: Sodium Chloride (Sodium Chloride 0.9%) 1,000 mls @ 250 mls/hr IV .Q4H ONE Stop: 06/06/19 17:07 Last Infusion: 06/06/19 17:45 Dose: Infused Documented by: Dextrose/Sodium Chloride (Dextrose 5%-0.9% Ns) 1,000 mls @ 100 mls/hr IV .Q10H PRN PRN Reason: HYDRATION Stop: 07/06/19 17:54 Last Infusion: 06/07/19 13:00 Dose: Infused Documented by: Potassium Chloride/Water (Kcl 10 Meq/100 Ml Piggyback) 100 mls @ 100 mls/hr IV Q1H [facility] Stop: 06/07/19 10:29 Last Infusion: 06/07/19 13:00 Dose: Infused Documented by: Potassium Chloride 20 meq/ (Dextrose/Sodium Chloride) 1,000 mls @ 125 mls/hr IV .Q8H [facility] Stop: 07/07/19 08:46 Last Infusion: 06/10/19 09:56 Dose: Infused Documented by: - Disposition Disposition: Inpatient Rehab Facility Condition: Stable Discharge Date: 06/11/19 Discharge Time: 12:44
[2019-06-11 14:31] VITALS: BP 115/85
== END 2019-06-11 14:45 | disposition short-term general hospital (02) | DRG 64 ==
LOC: ER 12:36 → MS 14:38
PROVIDERS: ADMIT Internal Medicine; ATTEND Family Medicine
DX: I10 Essential (primary) hypertension; F10.20 Alcohol dependence, uncomplicated; I48.20 Chronic atrial fibrillation, unspecified; N40.0 Benign prostatic hyperplasia without lower urinary tract symptoms; I61.9 Nontraumatic intracerebral hemorrhage, unspecified; R74.8 Abnormal levels of other serum enzymes; I63.512 Cerebral infarction due to unspecified occlusion or stenosis of left middle cerebral artery; R47.01 Aphasia; E87.6 Hypokalemia
CPT/HCPCS: 36415; 70450; 70553; 71010; 71045; 72125; 80048; 80053; 80307; 81001; 82140; 82550; 83519; 83605; 83880; 84132; 84145; 84484; 85025; 85610; 85652; 85730; 86140; 87086; 90471; 90715; 92507; 92526; 92610; 93005; 93306; 93880; 96360; 96361; 97110; 97116; 97161; 97165; 97535; 99285; A9576

== ENCOUNTER 2020-01-26 09:40 | Inpatient (IN) ==
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
[2020-01-26 10:53] LABS: Hematocrit 48.1 % (42.0-52.0); Hemoglobin 16.1 gm/dL (13.5-18.0); Mean Cell Volume 98.4 fl (78-100); Mean Corpuscular Hemoglobin 32.9 pg (27-31); Mean Corpuscular Hgb Conc 33.5 g/dl (32-36); Mean Platelet Volume 9.3 fl (8-11.3); Neutrophil # 16.2 K/mm3 (1.3-6.0); Neutrophil % 91.2 % (42-75.0); Platelet Count 464 K/mm3 (150-450); Red Blood Count 4.89 M/mm3 (4.7-6.0); Red Cell Distribution Width 14.6 % (11.5-14.0); White Blood Count 17.7 K/mm3 (4.0-10.5)
[2020-01-26 11:09] LABS: ALT 25 U/L (19-67); AST 22 U/L (0-48); Albumin * 3.1 gm/dl (3.4-5.0); Alkaline Phosphatase * 108 U/L (50-170); Anion Gap 13.7 mmol/L (6.8-13.8); BUN/Creatinine Ratio 11.2 (9.0-21.6); Bilirubin, Total 0.7 mg/dL (0.0-1.1); Blood Urea Nitrogen 10 mg/dL (6-23); Ca. Corrected For Albumin 9.8 mg/dL (8.4-10.2); Calcium * 9.4 mg/dL (7.9-10.9); Carbon Dioxide 27.9 mmol/L (24-32.6); Chloride 103 mmol/L (97-106); Glucose * 135 mg/dL (70-110); Potassium 3.6 mmol/L (3.4-4.6); Sodium 141 mmol/L (132-142); Total Protein 7.2 gm/dL (6.2-8.2)
[2020-01-26 11:10] LABS: Troponin I Less than 0.017 ng/mL (0.00-0.10)
[2020-01-26 11:13] LABS: Urine Appearance Clear (CLEAR); Urine Bilirubin Negative (NEGATIVE); Urine Blood 25 /ul (NEGATIVE); Urine Color Yellow; Urine Ketone 5 mg/dL (NEGATIVE); Urine Protein 30 mg/dL (NEGATIVE)
[2020-01-26 11:14] LABS: Urine Bacteria None Seen; Urine Nitrite Negative (NEGATIVE); Urine RBC 0-5 /hpf (0-5); Urine Urobilinogen Normal (NORMAL); Urine WBC 0-5 /hpf (0-5)
[2020-01-26] MEDS ORDERED: cefTRIAXone SODIUM 1,000 MG/100 ML BAG IV ONE (11:20)
[2020-01-26] MEDS ORDERED: NORMAL SALINE 1,000 ML IV ONE (11:45)
--- NOTE | 2020-01-26 23:41 | HP ---
Chief Complaint - Chief Complaint Date of Service: 01/26/20 Time of Service: 15:00 Chief Complaint: Fall, confusion History of Present Illness: Sarbjit is a 74 yo male with chronic atrial fibrillation on anticoagulation who presents to the [facility] ER after a fall. At the time of my examination he is a poor historian and appears to have difficulty finding the words to say. He has no focal concerns. Review of records show multiple falls recently and he did report left forearm pain at one point in the ER. Xray was negative for fracture. Head CT was negative for acute injury. His vitals are overall stable, his labwork shows leukocytosis of 17k and elevated lactic acid, but otherwise non-specific. His urine is unremarkable and his chest xray is clear. There was report that he had been down on the ground for some time, but his CK is normal. Medical History (Last Reviewed 01/26/20 @ 11:23 by Shorty Lindsay MD) CVA (cerebral vascular accident) (Acute) Expressive aphasia (Acute) Constipation (Chronic) Sarbjit is 73 and has never had a screening colonoscopy. I recommended that he have one but he is afraid to have anesthesia and refuses. He has a Cologuard kit at home that he is never used and I strongly recommended that he use that at least. He understands that if that is positive and he would need a diagnostic colonoscopy. Screening for prostate cancer (Acute) Colon cancer screening (Acute) Medicare annual wellness visit, subsequent (Acute) Knee pain, right (Chronic) Alcoholism (Chronic) Onset Date: Unknown [email or web address] Insomnia (Chronic) Onset Date: Unknown Hypertension (Chronic) Onset Date: Unknown BPH (benign prostatic hyperplasia) (Chronic) Onset Date: Unknown Atrial fibrillation (Chronic) Onset Date: Unknown Cataracts, bilateral Onset Date: Unknown Gout Onset Date: Unknown Surgical History: Surgical History (Last Reviewed 01/26/20 @ 11:23 by Shorty Lindsay MD) H/O eye surgery Onset Date: ~12/25/18 both eyes: laser treatment History of cataract surgery Onset Date: ~2014 bilaeral Family History: Family History (Last Reviewed 01/26/20 @ 11:23 by Shorty Lindsay MD) Father , age 80 Cancer liver cancer Mother , age 70's Cancer bladder cancer Brother , age 60's Alcoholism Social History: (Last Reviewed 01/26/20 @ 11:23 by Shorty Lindsay MD) Social History: chcf: No Marital status: Single lives independently: Yes household members: none current occupational status: retired current occupation: retired Highest education level completed: high school graduate Service: Yes branch: [employer] status: retired Tobacco: Smoking Status: Former smoker Alcohol: alcohol intake: current details: drinks 1/2 gallon vodka every 2 weeks Substance Use: substance use type: does not use Dietary Habits: caffeine: Yes Review Of Systems (GEN) - Review of Systems Generalized/Overall Review: Absent: Chills, Fever EENTM: Present: No Symptoms Reported Respiratory: Absent: Cough, Shortness of Breath Cardiac: Absent: Chest Pain, Edema Abdominal: Absent: Nausea, Vomiting, Abdominal Pain Genitourinary: Absent: Burning, Frequency Musculoskeletal: Present: No Symptoms Reported Neurological: Present: No Symptoms Reported Skin: Present: No Symptoms Reported Endocrine: Present: No Symptoms Reported Immunizations: IMMUNIZATION HX Immunizations Up to Date Yes History of Influenza Vaccine More Information Required Hx Pneumococcal Vaccination More Information Required Allergies/Adverse Reactions: Allergies Allergy/AdvReac Type Severity Reaction Status Date / Time No Known Allergies Allergy Verified 01/26/20 09:50 Home Medications: HOME MEDICATIONS Cholecalciferol (Vitamin D3) [Vitamin D3] 2,000 unit PO DAILY 11/27/14 [Last Taken Unknown] Multivitamins [Multivitamin Aubrey] 1 cap PO DAILY 11/27/14 [Last Taken Unknown] diltiazem HCl 300 mg capsule,extended release 24 hr 300 mg PO DAILY #30 cap.er.24h 11/30/19 [Last Taken Unknown] apixaban 5 mg tablet 5 mg PO BID #180 tab 12/31/19 [Last Taken Unknown] finasteride 5 mg tablet 5 mg PO DAILY #90 tab 12/31/19 [Last Taken Unknown] Brimonidine 0.2% Ophthalmic Solution 1 drp EACHEYE TID 01/26/20 [Last Taken Unknown] Folic Acid 1 mg PO DAILY 01/26/20 [Last Taken Unknown] traZODone HCL [Trazodone HCl] 50 mg PO HS 01/26/20 [Last Taken Unknown] Exam - Exam Vital Signs: Vital Signs - Last Taken Temp 36.5 C 10/17/20 22:20 Pulse 83 01/26/20 22:20 Resp 24 H 01/26/20 22:20 BP 155/87 H 01/26/20 22:20 Pulse Ox 97 01/26/20 22:20 Constitutional: Present: Alert, Other - Sarbjit is awake, but has difficulty explaining how he feels. He reports no to most all ROS, but has difficulty with open questions. I am not familiar with his baseline. Eye Exam: bilateral eye: normal inspection Respiratory: Present: lungs clear, normal breath sounds Cardiovascular/Chest: Present: no murmur, irregularly irregular Peripheral Pulses: radial (R): 2+, radial (L): 2+ Abdomen: Present: Normal bowel sounds, soft, nontender, nondistended Skin Exam: Present: normal color, warm/dry, no cyanosis Neurologic: Present: no motor/sensory deficits, alert. Absent: facial droop, sensory deficit Eye contact: Present: cooperative, good eye contact Diagnostic Studies: Abnormal Lab Results 01/26/20 01/26/20 01/26/20 Range/Units 10:45 10:46 10:50 WBC 17.7 H (4.0-10.5) K/mm3 MCH 32.9 H (27-31) pg RDW 14.6 H (11.5-14.0) % Plt Count 464 H (150-450) K/mm3 Immature Gran % (Auto) 0.50 H (0.001-0.429) % Immature Gran # (Auto) 0.08 H (0.000-0.0310) K/mm3 Neutrophils % 91.2 H (42-75.0) % Lymphocytes % 2.8 L (20-51) % Neutrophils # 16.2 H (1.3-6.0) K/mm3 Lymphocytes # 0.50 L (1.5-3.5) k/mm3 Random Glucose 135 H (70-110) mg/dL Lactic Acid, Venous 2.6 H* (0.4-2.0) mmol/L Albumin 3.1 L (3.4-5.0) gm/dl Urine Protein (NEGATIVE) mg/dL Urine Blood (NEGATIVE) /ul 01/26/20 01/26/20 Range/Units 10:52 14:02 WBC (4.0-10.5) K/mm3 MCH (27-31) pg RDW (11.5-14.0) % Plt Count (150-450) K/mm3 Immature Gran % (Auto) (0.001-0.429) % Immature Gran # (Auto) (0.000-0.0310) K/mm3 Neutrophils % (42-75.0) % Lymphocytes % (20-51) % Neutrophils # (1.3-6.0) K/mm3 Lymphocytes # (1.5-3.5) k/mm3 Random Glucose (70-110) mg/dL Lactic Acid, Venous 3.0 H* (0.4-2.0) mmol/L Albumin (3.4-5.0) gm/dl Urine Protein 30 H (NEGATIVE) mg/dL Urine Blood 25 H (NEGATIVE) /ul Laboratory Results WBC 17.7 K/mm3 (4.0-10.5) H 01/26/20 10:45 RBC 4.89 M/mm3 (4.7-6.0) 01/26/20 10:45 Hgb 16.1 gm/dL (13.5-18.0) 01/26/20 10:45 Hct 48.1 % (42.0-52.0) 01/26/20 10:45 MCV 98.4 fl (78-100) 01/26/20 10:45 MCH 32.9 pg (27-31) H 01/26/20 10:45 MCHC 33.5 g/dl (32-36) 01/26/20 10:45 RDW 14.6 % (11.5-14.0) H 01/26/20 10:45 Plt Count 464 K/mm3 (150-450) H 01/26/20 10:45 MPV 9.3 fl (8-11.3) 01/26/20 10:45 Immature Gran % (Auto) 0.50 % (0.001-0.429) H 01/26/20 10:45 Immature Gran # (Auto) 0.08 K/mm3 (0.000-0.0310) H 01/26/20 10:45 Neutrophils % 91.2 % (42-75.0) H 01/26/20 10:45 Lymphocytes % 2.8 % (20-51) L 01/26/20 10:45 Monocytes % 5.3 % (0.0-9) 01/26/20 10:45 Eosinophils % 0.0 % (0.0-3.0) 01/26/20 10:45 Basophils % 0.2 % (0.0-1.0) 01/26/20 10:45 Nucleated RBC % 0.0 k/mm3 (0-1) 01/26/20 10:45 Neutrophils # 16.2 K/mm3 (1.3-6.0) H 01/26/20 10:45 Lymphocytes # 0.50 k/mm3 (1.5-3.5) L 01/26/20 10:45 Monocytes # 0.9 k/mm3 (0.0-1.0) 01/26/20 10:45 Eosinophils # 0.0 k/mm3 (0.0-0.7) 01/26/20 10:45 Absolute Basophils 0.0 k/mm3 (0.0-0.1) 01/26/20 10:45 Sodium 141 mmol/L (132-142) 01/26/20 10:50 Plasma Sodium 142 mmol/L (130-142) 01/26/20 10:50 Potassium 3.6 mmol/L (3.4-4.6) D 01/26/20 10:50 Chloride 103 mmol/L (97-106) 01/26/20 10:50 Carbon Dioxide 27.9 mmol/L (24-32.6) 01/26/20 10:50 Anion Gap 13.7 mmol/L (6.8-13.8) 01/26/20 10:50 BUN 10 mg/dL (6-23) 01/26/20 10:50 Creatinine 0.89 mg/dL (0.4-1.4) 01/26/20 10:50 Est GFR (Non-Af Amer) 88 mL/min (60-130) 01/26/20 10:50 BUN/Creatinine Ratio 11.2 (9.0-21.6) 01/26/20 10:50 Random Glucose 135 mg/dL (70-110) H 01/26/20 10:50 Lactic Acid, Venous 3.0 mmol/L (0.4-2.0) H* 01/26/20 14:02 Calcium 9.4 mg/dL (7.9-10.9) 01/26/20 10:50 Calcium Adj for Albumin 9.8 mg/dL (8.4-10.2) 01/26/20 10:50 Total Bilirubin 0.7 mg/dL (0.0-1.1) 01/26/20 10:50 AST 22 U/L (0-48) 01/26/20 10:50 ALT 25 U/L (19-67) 01/26/20 10:50 Alkaline Phosphatase 108 U/L (50-170) 01/26/20 10:50 Creatine Kinase 210 U/L (0-259) 01/26/20 10:46 Troponin I Less than 0.017 ng/mL (0.00-0.10) 01/26/20 10:50 Total Protein 7.2 gm/dL (6.2-8.2) 01/26/20 10:50 Albumin 3.1 gm/dl (3.4-5.0) L 01/26/20 10:50 Urine Color Yellow 01/26/20 10:52 Urine Appearance Clear (CLEAR) 01/26/20 10:52 Urine pH 7.0 pH (5.0-7.0) 01/26/20 10:52 Ur Specific [place] 1.020 SP.GR. (1.005-1.030) 01/26/20 10:52 Urine Protein 30 mg/dL (NEGATIVE) H 01/26/20 10:52 Urine Glucose (UA) Negative mg/dL (NEGATIVE) 01/26/20 10:52 Urine Ketones 5 mg/dL (NEGATIVE) 01/26/20 10:52 Urine Blood 25 /ul (NEGATIVE) H 01/26/20 10:52 Urine Nitrate Negative (NEGATIVE) 01/26/20 10:52 Urine Bilirubin Negative mg/dl (NEGATIVE) 01/26/20 10:52 Prot Sulfosalicylic Acd 1+ mg/dL (0) 01/26/20 10:52 Urine Urobilinogen Normal EU/dl (NORMAL) 01/26/20 10:52 Ur Leukocyte Esterase Negative /ul (NEGATIVE) 01/26/20 10:52 Urine RBC 0-5 /hpf (0-5) 01/26/20 10:52 Urine WBC 0-5 /hpf (0-5) 01/26/20 10:52 Ur Epithelial Cells 0-5 /hpf (0-5) 01/26/20 10:52 Urine Bacteria None seen (NONE) 01/26/20 10:52 Urine Culture Comments No culture indicated 01/26/20 10:52 Assessment/Plan - Narrative Narrative: Sarbjit is a 74 yo male with altered mental status, confusion, expressive aphasia, and recent falls. He has leukocytosis and elevated lactic acid, but no source. Will admit to observation. I do not know his baseline but it is reportedly not quite this bad. Blood cultures pending at this time. Head CT showed no acute changes, may need MRI if he continues to have more problems then his baseline. - Assessment/Plan (1) AMS (altered mental status) Problem: Acute Qualifiers: Altered mental status type: disorientation Qualified Code(s): R41.0 - Disorientation, unspecified (2) Leukocytosis Problem: Acute Qualifiers: Qualified Code(s): D72.825 - Bandemia
[2020-01-27 08:38] LABS: Hematocrit 48.7 % (42.0-52.0); Hemoglobin 15.7 gm/dL (13.5-18.0); Mean Cell Volume 100.2 fl (78-100); Mean Corpuscular Hemoglobin 32.3 pg (27-31); Mean Corpuscular Hgb Conc 32.2 g/dl (32-36); Mean Platelet Volume 9.2 fl (8-11.3); Neutrophil # 8.8 K/mm3 (1.3-6.0); Neutrophil % 78.9 % (42-75.0); Platelet Count 428 K/mm3 (150-450); Red Blood Count 4.86 M/mm3 (4.7-6.0); Red Cell Distribution Width 14.7 % (11.5-14.0); White Blood Count 11.2 K/mm3 (4.0-10.5)
[2020-01-27] MEDS: APIXABAN 5 MG TABLET PO SCH ×2 (08:47→20:40)
[2020-01-27] MEDS: DILTIAZEM HCL 120 MG CAP.SR.24H PO SCH (08:50)
[2020-01-27] MEDS: DILTIAZEM HCL 180 MG CAP.SR.24H PO SCH (08:51)
[2020-01-27 08:55] LABS: ALT 25 U/L (19-67); AST 58 U/L (0-48); Albumin * 2.8 gm/dl (3.4-5.0); Alkaline Phosphatase * 87 U/L (50-170); Anion Gap 13.1 mmol/L (6.8-13.8); BUN/Creatinine Ratio 9.6 (9.0-21.6); Bilirubin, Total 0.9 mg/dL (0.0-1.1); Blood Urea Nitrogen 9 mg/dL (6-23); Ca. Corrected For Albumin 9.5 mg/dL (8.4-10.2); Calcium * 8.9 mg/dL (7.9-10.9); Carbon Dioxide 29.9 mmol/L (24-32.6); Chloride 101 mmol/L (97-106); Glucose * 146 mg/dL (70-110); Sodium 141 mmol/L (132-142); Total Protein 6.4 gm/dL (6.2-8.2)
[2020-01-27 08:57] LABS: Troponin I Less than 0.017 ng/mL (0.00-0.10)
[2020-01-27] MEDS ORDERED: LORazepam 2 MG/ML DISP.SYRIN IV ONE (10:33)
[2020-01-27] MEDS ORDERED: POTASSIUM CHLORIDE 20 MEQ TABLET.SA PO ONE (16:10)
--- NOTE | 2020-01-27 23:23 | PN ---
Subjective - Date and Time Seen Date: 01/27/20 Time: 09:00 Subjective Narrative: Nursing reports difficulty finding words. A nurse who is familiar with him reports that this is much different than his usual. Brain MRI performed for change in condition. MRi shows chronic stroke, no significant acute changes. Later his speaking appeared to improve. He has no focal concerns. He continues to have difficulty explaining how he feels. Objective - Vitals Vitals: Last Vital Signs Temp 36.4 C 01/27/20 21:49 Pulse 77 01/27/20 21:49 Resp 16 01/27/20 21:49 BP 135/92 H 01/27/20 21:49 Pulse Ox 94 01/27/20 21:49 - Abnormal Lab Findings Abnormal Lab Findings: Abnormal Lab Results 01/27/20 01/27/20 Range/Units 08:32 08:32 WBC 11.2 H D (4.0-10.5) K/mm3 MCV 100.2 H (78-100) fl MCH 32.3 H (27-31) pg RDW 14.7 H (11.5-14.0) % Neutrophils % 78.9 H (42-75.0) % Lymphocytes % 12.3 L (20-51) % Neutrophils # 8.8 H (1.3-6.0) K/mm3 Lymphocytes # 1.38 L (1.5-3.5) k/mm3 Potassium 3.0 L (3.4-4.6) mmol/L Random Glucose 146 H (70-110) mg/dL AST 58 H (0-48) U/L Albumin 2.8 L (3.4-5.0) gm/dl - Exam Constitutional: Present: Alert, Oriented x3, Cooperative ENT Exam: Present: hearing grossly normal Respiratory: Present: lungs clear, normal breath sounds Cardiovascular/Chest: Present: regular rate, rhythm, no edema Abdomen: Present: Normal bowel sounds, soft, nontender, nondistended Neurologic: Present: other - Expressive dysphasia Assessment/Plan Plan Narrative: Chronic stroke with expressive dysphasia. Symptoms appeared to have worsened but no evidence of acute stroke. He appears to be improved later today. Will continue to monitor, may need speech therapy eval unless he fully returns to his baseline. - Problems/Diagnosis (1) AMS (altered mental status) Problem: Acute Qualifiers: Altered mental status type: disorientation Qualified Code(s): R41.0 - Disorientation, unspecified (2) Leukocytosis Problem: Acute Qualifiers: Qualified Code(s): D72.825 - Bandemia
--- NOTE | 2020-01-28 08:11 | DS ---
(1) AMS (altered mental status) Problem: Acute Qualifiers: Altered mental status type: disorientation Qualified Code(s): R41.0 - Disorientation, unspecified (2) Fall at home Problem: Acute Qualifiers: Encounter type: subsequent encounter Qualified Code(s): W19.XXXD - Unspecified fall, subsequent encounter; Y92.009 - Unspecified place in unspecified non-institutional (private) residence as the place of occurrence of the external cause (3) Intermittent atrial fibrillation Problem: Acute (4) Expressive aphasia Problem: Acute (5) Hypokalemia Problem: Resolved Date of Discharge:: 01/28/20 Hospital Course: Sarbijt is a 74 yo male with chronic atrial fibrillation on anticoagulation who presents to the [facility] ER after a fall. At the time of my examination he is a poor historian and appears to have difficulty finding the words to say. He has no focal concerns. Review of records show multiple falls recently and he did report left forearm pain at one point in the ER. Xray was negative for fracture. Head CT was negative for acute injury. His vitals are overall stable, his labwork shows leukocytosis of 17k and elevated lactic acid, but otherwise non-specific. His urine is unremarkable and his chest xray is clear. There was report that he had been down on the ground for some time, but his CK is normal. Yesterday's white count had dropped to 11,000. His potassium was also dropped to 3.0. This morning's lab was not ordered so I have ordered it just now to make sure he meets discharge criteria. He is alert and is conversational as he can be with his expressive aphasia. I know him fairly well and he seems to be back to his usual baseline. He is ambulatory without assistance. He is eating and drinking well. His biggest concern is transportation to get home and that he has no close especially shoes in which to get home. I have reassured him we will help him in all aspects of that. His disposition is improved from baseline. This morning's lab shwos the WBC normal now at 10.3. The K+ is back up to 3.6. All other values are of no concern. Ok to discharge him. Procedures Performed: none Results and Findings: Pending Mircobiology Results 01/26/20 11:37 Blood Blood Culture - Preliminary NO GROWTH 24 HOURS 01/26/20 11:23 Blood Blood Culture - Preliminary NO GROWTH 24 HOURS Lab Pending Results 01/26/20 10:45: WBC 17.7 H, RBC 4.89, Hgb 16.1, Hct 48.1, MCV 98.4, MCH 32.9 H, MCHC 33.5, RDW 14.6 H, Plt Count 464 H, MPV 9.3, Immature Gran % (Auto) 0.50 H, Immature Gran # (Auto) 0.08 H, Neutrophils % 91.2 H, Lymphocytes % 2.8 L, Monocytes % 5.3, Eosinophils % 0.0, Basophils % 0.2, Nucleated RBC % 0.0, Neutr ophils # 16.2 H, Lymphocytes # 0.50 L, Monocytes # 0.9, Eosinophils # 0.0, Absolute Basophils 0.0 01/26/20 10:46: Lactic Acid, Venous 2.6 H* 01/26/20 10:46: Creatine Kinase 210 01/26/20 10:50: Sodium 141, Plasma Sodium 142, Potassium 3.6 D, Chloride 103, Carbon Dioxide 27.9, Anion Gap 13.7, BUN 10, Creatinine 0.89, Est GFR (Non-Af Amer) 88, BUN/Creatinine Ratio 11.2, Random Glucose 135 H, Calcium 9.4, Calcium Adj for Albumin 9.8, Total Bilirubin 0.7, AST 22, ALT 25, Alkaline Phosphatase 108, Troponin I Less than 0.017, Total Protein 7.2, Albumin 3.1 L 01/26/20 10:52: Urine Color Yellow, Urine Appearance Clear, Urine pH 7.0, Ur Specific [place] 1.020, Urine Protein 30 H, Urine Glucose (UA) Negative, Urine Ketones 5, Urine Blood 25 H, Urine Nitrate Negative, Urine Bilirubin Negative, Prot Sulfosalicylic Acd 1+, Urine Urobilinogen Normal, Ur Leukocyte Esterase Negative, Urine RBC 0-5, Urine WBC 0-5, Ur Epithelial Cells 0-5, Urine Bacteria None seen, Urine Culture Comments No culture indicated 01/26/20 14:02: Lactic Acid, Venous 3.0 H* 01/27/20 08:32: WBC 11.2 H D, RBC 4.86, Hgb 15.7, Hct 48.7, MCV 100.2 H, MCH 32.3 H, MCHC 32.2, RDW 14.7 H, Plt Count 428, MPV 9.2, Immature Gran % (Auto) 0.30, Immature Gran # (Auto) 0.03, Neutrophils % 78.9 H, Lymphocytes % 12.3 L, Monocytes % 7.3, Eosinophils % 0.8, Basophils % 0.4, Nucleated RBC % 0.0, Neutrophils # 8.8 H, Lymphocytes # 1.38 L, Monocytes # 0.8, Eosinophils # 0.1, Absolute Basophils 0.0 01/27/20 08:32: Sodium 141, Plasma Sodium 142, Potassium 3.0 L, Chloride 101, Carbon Dioxide 29.9, Anion Gap 13.1, BUN 9, Creatinine 0.94, Est GFR (Non-Af Amer) 83, BUN/Creatinine Ratio 9.6, Random Glucose 146 H, Calcium 8.9, Calcium Adj for Albumin 9.5, Total Bilirubin 0.9, AST 58 H, ALT 25, Alkaline Phosphatase 87, Troponin I Less than 0.017, Total Protein 6.4, Albumin 2.8 L Discharge Location: Home Disposition: Home Health Service [facility] Agency: [facility] Home Health Condition: Fair Face to Face Encounter completed per [facility] Guidelines: No Discharge Activity: Activity as tolerated Discharge Diet: General/regular food Referrals: Eligio Jorge DO [Primary Care Provider] - Problem Oriented Discharge Instructions to Patient/Family: Confusion Additional Patient Instructions (free text): Follow up with TCM visit in 7-10 days. Has [facility] HH ongoing. Please call and fax discharge information to them. Complete Home Medications List: Complete Home Medication List: Cholecalciferol (Vitamin D3) [Vitamin D3] 2,000 unit PO DAILY 11/27/14 Multivitamins [Multivitamin Aubrey] 1 cap PO DAILY 11/27/14 diltiazem HCl 300 mg capsule,extended release 24 hr 300 mg PO DAILY #30 cap.er.24h 11/30/19 apixaban 5 mg tablet 5 mg PO BID #180 tab 12/31/19 finasteride 5 mg tablet 5 mg PO DAILY #90 tab 12/31/19 Brimonidine 0.2% Ophthalmic Solution 1 drp EACHEYE TID 01/26/20 Folic Acid 1 mg PO DAILY 01/26/20 traZODone HCL [Trazodone HCl] 50 mg PO HS 01/26/20
[2020-01-28 08:26] LABS: Hematocrit 50.2 % (42.0-52.0); Hemoglobin 16.2 gm/dL (13.5-18.0); Mean Cell Volume 100.8 fl (78-100); Mean Corpuscular Hemoglobin 32.5 pg (27-31); Mean Corpuscular Hgb Conc 32.3 g/dl (32-36); Mean Platelet Volume 9.1 fl (8-11.3); Neutrophil # 8.1 K/mm3 (1.3-6.0); Platelet Count 419 K/mm3 (150-450); Red Blood Count 4.98 M/mm3 (4.7-6.0); Red Cell Distribution Width 14.6 % (11.5-14.0); White Blood Count 10.3 K/mm3 (4.0-10.5)
[2020-01-28 08:51] LABS: Albumin * 2.8 gm/dl (3.4-5.0); Anion Gap 11.9 mmol/L (6.8-13.8); Ca. Corrected For Albumin 9.6 mg/dL (8.4-10.2); Carbon Dioxide 29.7 mmol/L (24-32.6); Potassium 3.6 mmol/L (3.4-4.6); Total Protein 6.5 gm/dL (6.2-8.2)
[2020-01-28] MEDS ORDERED: APIXABAN 5 MG TABLET PO SCH (09:00)
[2020-01-28] MEDS ORDERED: MULTIVITAMINS 1 CAP CAPSULE PO SCH (09:00)
[2020-01-28] MEDS ORDERED: DILTIAZEM HCL 300 MG PO SCH (09:00)
[2020-01-28] MEDS ORDERED: BRIMONIDINE TARTRATE 50 DROP BTL EACHEYE SCH (09:00)
[2020-01-28] MEDS ORDERED: FINASTERIDE 5 MG TABLET PO SCH (09:00)
[2020-01-28] MEDS ORDERED: FOLIC ACID 1 MG TABLET PO SCH (09:00)
[2020-01-28] MEDS ORDERED: CHOLECALCIFEROL 1,000 UNIT CAPSULE PO SCH (09:00)
[2020-01-28] MEDS: DILTIAZEM HCL 180 MG CAP.SR.24H PO SCH (09:56)
[2020-01-28] MEDS: DILTIAZEM HCL 120 MG CAP.SR.24H PO SCH (09:56)
[2020-01-28] MEDS: APIXABAN 5 MG TABLET PO SCH (09:56)
[2020-01-28 13:11] VITALS: BP 117/75
[2020-01-28] MEDS ORDERED: traZODone HCL 50 MG TABLET PO SCH (21:00)
== END 2020-01-28 13:30 | disposition home health service (06) | DRG 948 ==
LOC: ER 09:40 → OBSVTOIN 12:15 → MS 12:15 → INTOOBSV 12:15 → MS 13:08
PROVIDERS: ADMIT Family Medicine; ATTEND Family Medicine
DX: R74.02 Elevation of levels of lactic acid dehydrogenase [LDH]; I69.920 Aphasia following unspecified cerebrovascular disease; R53.1 Weakness; W01.0XXA Fall on same level from slipping, tripping and stumbling without subsequent striking against object, initial encounter; Z91.81 History of falling; R41.0 Disorientation, unspecified; M79.632 Pain in left forearm; D72.825 Bandemia; I10 Essential (primary) hypertension; E87.6 Hypokalemia; I48.20 Chronic atrial fibrillation, unspecified; Z79.01 Long term (current) use of anticoagulants

== ENCOUNTER 2020-04-10 12:06 | Inpatient (IN) ==
[2020-04-10] MEDS ORDERED: NORMAL SALINE 1,000 ML IV ONE ×2 (12:16→13:54)
--- NOTE | 2020-04-10 12:31 | ERNOTE ---
Neuro HPI ER Record Date of Service: 04/10/20 Presenting Symptoms: other - Found on floor. Time Seen by Provider: 04/10/20 12:14 Source: EMS Exam Limitations: clinical condition Immunizations: IMMUNIZATION HX Immunizations Up to Date Yes History of Influenza Vaccine No Hx Pneumococcal Vaccination No Allergies/Adverse Reactions: Allergies Allergy/AdvReac Type Severity Reaction Status Date / Time No Known Allergies Allergy Verified 04/10/20 12:09 Home Medications: HOME MEDICATIONS Cholecalciferol (Vitamin D3) [Vitamin D3] 2,000 unit PO DAILY 11/27/14 [Last Taken Unknown] Multivitamins [Multivitamin Aubrey] 1 cap PO DAILY 11/27/14 [Last Taken Unknown] diltiazem HCl 300 mg capsule,extended release 24 hr 300 mg PO DAILY #30 cap.er.24h 11/30/19 [Last Taken Unknown] finasteride 5 mg tablet 5 mg PO DAILY #90 tab 12/31/19 [Last Taken Unknown] Brimonidine 0.2% Ophthalmic Solution 1 drp EACHEYE TID 01/26/20 [Last Taken Unknown] Folic Acid 1 mg PO DAILY 01/26/20 [Last Taken Unknown] traZODone HCL [Trazodone HCl] 50 mg PO HS 01/26/20 [Last Taken Unknown] apixaban 5 mg tablet 5 mg PO BID #180 tab 03/27/20 [Last Taken Unknown] - History of Present Illness Narrative: This patient is a 74-year-old male who arrived by ambulance. He was found on the floor with decreased responsiveness by the home health nurse. He had last been seen about 2 weeks ago. Our chart indicates he had a history of stroke and expressive aphasia. The patient is not able to give any useful history. There were no lateralizing stroke findings, other than decreased lifting of the right arm, but he appears to have had an arm injury. Our records indicate he has a history of atrial fibrillation and is on apaxiban. Review of Systems - Narrative Narrative: Unable. Medical History (Last Reviewed 04/10/20 @ 12:25 by Ranulfo Mcgee MD) CVA (cerebral vascular accident) (Acute) Expressive aphasia (Acute) Constipation (Chronic) Sarbjit is 73 and has never had a screening colonoscopy. I recommended that he have one but he is afraid to have anesthesia and refuses. He has a Cologuard kit at home that he is never used and I strongly recommended that he use that at least. He understands that if that is positive and he would need a diagnostic colonoscopy. Screening for prostate cancer (Acute) Colon cancer screening (Acute) Medicare annual wellness visit, subsequent (Acute) Knee pain, right (Chronic) Alcoholism (Chronic) Onset Date: Unknown [email or web address] Insomnia (Chronic) Onset Date: Unknown Hypertension (Chronic) Onset Date: Unknown BPH (benign prostatic hyperplasia) (Chronic) Onset Date: Unknown Atrial fibrillation (Chronic) Onset Date: Unknown Cataracts, bilateral Onset Date: Unknown Gout Onset Date: Unknown Surgical History: Surgical History (Last Reviewed 04/10/20 @ 12:25 by Ranulfo Mcgee MD) H/O eye surgery Onset Date: ~12/25/18 both eyes: laser treatment History of cataract surgery Onset Date: ~2014 bilaeral Family History: Family History (Last Reviewed 04/10/20 @ 12:25 by Ranulfo Mcgee MD) Father , age 80 Cancer liver cancer Mother , age 70's Cancer bladder cancer Brother , age 60's Alcoholism Social History: (Last Reviewed 04/10/20 @ 12:25 by Ranulfo Mcgee MD) Social History: residential: No Marital status: Single lives independently: Yes household members: none current occupational status: retired current occupation: retired Highest level of school completed/degree received: high school graduate Service: Yes branch: [employer] status: retired Tobacco: Smoking Status: Former smoker Alcohol: alcohol intake: current details: drinks 1/2 gallon vodka every 2 weeks Substance Use: substance use type: does not use Dietary Habits: caffeine: Yes Physical Exam - Physical Exam General Appearance: Present: alert, cachetic Head Exam: Present: other - He has erythema and abrasion of the right temporal area. Eye Exam: Normal inspection: bilateral - Small, equal, and reactive pupils Ears, Nose, Throat: Present: other - Otherwise normal. Neck: Present: nontender - No pain response with palpation., supple Respiratory: Present: no respiratory distress, normal breath sounds - Anteriorly, lungs clear Cardiovascular/Chest: Present: no murmur, tachycardia Gastrointestinal/Abdominal: Present: normal bowel sounds, nontender, nondistended, soft, no organomegaly Extremity Exam: Present: normal except - - He has a pain response with palpation of the right shoulder and movement of the right upper arm. The right forearm is ecchymotic and swollen. There is no pain response with palpation of the upper arm, elbow, forearm, wrist, and hand. He has no pain response with palpation of the lower extremities, other - He has no pain response with palpation of the lower extremities. He has no pain response with palpation of the hip. I can rotate his hips without pain. He has pain when I compress the pelvis. Neurological Exam: Present: other - He has decreased use of the right upper extr emity. He localizes pain. He is awake and alert. He is nonverbal. Skin Exam: Present: normal color, warm/dry Progress - Date and Time Seen: Date and Time: 04/10/20 14:11 The x-rays of back and do not show anything acute. The blood work is back and shows elevated troponin, lactic acid, and WBC. He has had some fluids and his blood pressure is better. He will get some diltiazem. He is not interested in staying at the hospital at this time. 04/10/20 14:20 He had some slowing with the first dose of diltiazem. 04/10/20 14:46 The patient is agreeable to staying in the hospital. I spoke with Dr. Henley and she will come see the patient. - Results and Orders Patient's Lab Results:: I have reviewed the patient's lab results. Results and Orders: Laboratory Tests 04/10/20 04/10/20 04/10/20 12:53 12:53 12:53 WBC 18.9 H RBC 5.94 Hgb 19.5 H Hct 61.0 H MCV 102.7 H MCH 32.8 H MCHC 32.0 RDW 13.5 Plt Count 383 MPV 11.0 Neutrophils % (Manual) 82 H Lymphocytes % (Manual) 10 L Monocytes % (Manual) 8 Neutrophils # (Manual) 15.5 H Lymphocytes # (Manual) 1.9 Monocytes # (Manual) 1.5 H Platelet Estimate Normal RBC Morphology Normal PT 17.1 H INR (Anticoag Therapy) 1.77 H Sodium 153 H Plasma Sodium 153 H Potassium 3.9 Chloride 114 H Carbon Dioxide 27.7 Anion Gap 15.2 H BUN 91 H D Creatinine 1.80 H D Est GFR (Non-Af Amer) 39 L D BUN/Creatinine Ratio 50.6 H Random Glucose 129 H Lactic Acid, Venous Calcium 10.0 Calcium Adj for Albumin 10.6 H Total Bilirubin 1.6 H AST 31 ALT 22 Alkaline Phosphatase 92 Creatine Kinase 388 H Troponin I 0.406 H* Total Protein 6.9 Albumin 2.8 L Ethyl Alcohol Less than 3.0 04/10/20 12:53 WBC RBC Hgb Hct MCV MCH MCHC RDW Plt Count MPV Neutrophils % (Manual) Lymphocytes % (Manual) Monocytes % (Manual) Neutrophils # (Manual) Lymphocytes # (Manual) Monocytes # (Manual) Platelet Estimate RBC Morphology PT INR (Anticoag Therapy) Sodium Plasma Sodium Potassium Chloride Carbon Dioxide Anion Gap BUN Creatinine Est GFR (Non-Af Amer) BUN/Creatinine Ratio Random Glucose Lactic Acid, Venous 3.6 H* Calcium Calcium Adj for Albumin Total Bilirubin AST ALT Alkaline Phosphatase Creatine Kinase Troponin I Total Protein Albumin Ethyl Alcohol Laboratory Tests 04/10/20 13:58 Urine Color Dark yellow Urine Appearance Cloudy Urine pH 5.5 Ur Specific [place] >=1.030 Urine Protein Negative Urine Glucose (UA) Negative Urine Ketones 5 Urine Blood 5 H Urine Nitrate Negative Urine Bilirubin 3 H Urine Urobilinogen Normal Ur Leukocyte Esterase Negative Urine RBC 0-5 Urine WBC 0-5 Ur Epithelial Cells 5-10 H Amorphous Sediment Many - 3+ H Urine Bacteria 1+ H Hyaline Casts 0-5 H Fine Granular Casts 0-5 H Urine Culture Comments No culture indicated - Vital Signs Patient's Vital Signs:: I have reviewed the patient's vital signs. Vital Signs: Vital Signs 04/10/20 12:06 Temperature 35.6 C L Pulse Rate 131 H Respiratory Rate 22 H Blood Pressure 105/78 O2 Sat by Pulse Oximetry 98 - EKG EKG #1 EKG read: Interp. by me EKG Comments: Atrial fibrillation and flutter Rate [address] and T wave changes Compared to an EKG dated 06/06/2019, he was in atrial fibrillation at that time with a PVC. The ST-T wave changes are more pronounced today. - Progress/Reassessment Chief Complaint: Altered Mental Status Departure Clinical Impression: Expressive aphasia, Elevated CK, Lactic acidemia, Leukocytosis, Atrial fibrillation, Fall at home, Dehydration, Hypernatremia, Acute kidney injury, Elevated troponin - Departure Disposition: Still a patient Condition: Fair Referrals: Eligio Jorge DO [Primary Care Provider] -
[2020-04-10 12:55] LABS: Hemoglobin 19.5 gm/dL (13.5-18.0); Mean Cell Volume 102.7 fl (78-100); Mean Corpuscular Hemoglobin 32.8 pg (27-31); Platelet Count 383 K/mm3 (150-450); Red Blood Count 5.94 M/mm3 (4.7-6.0); Red Cell Distribution Width 13.5 % (11.5-14.0); White Blood Count 18.9 K/mm3 (4.0-10.5)
[2020-04-10 13:03] LABS: Total Cells Counted 100
[2020-04-10 13:10] LABS: Prothrombin Time (Patient) 17.1 Seconds (9.1-10.7)
[2020-04-10 13:11] LABS: INR 1.77 INR (0.92-1.08)
[2020-04-10 13:20] LABS: ALT 22 U/L (19-67); AST 31 U/L (0-48); Albumin * 2.8 gm/dl (3.4-5.0); Alkaline Phosphatase * 92 U/L (50-170); Anion Gap 15.2 mmol/L (6.8-13.8); BUN/Creatinine Ratio 50.6 (9.0-21.6); Bilirubin, Total 1.6 mg/dL (0.0-1.1); Blood Urea Nitrogen 91 mg/dL (6-23); CK Total * 388 U/L (0-259); Ca. Corrected For Albumin 10.6 mg/dL (8.4-10.2); Carbon Dioxide 27.7 mmol/L (24-32.6); Chloride 114 mmol/L (97-106); Glucose * 129 mg/dL (70-110); Potassium 3.9 mmol/L (3.4-4.6); Sodium 153 mmol/L (132-142); Total Protein 6.9 gm/dL (6.2-8.2)
[2020-04-10 13:22] LABS: Troponin I 0.406 ng/mL (0.00-0.10)
[2020-04-10 13:44] LABS: Lymphocyte 10 % (20-51); Monocyte 8 % (0-9); Neutrophil 82 % (42-75); Neutrophil # 15.5 K/mm3 (1.3-6.0)
[2020-04-10 13:45] LABS: Platelet Estimate Normal (NORMAL); RBC Morphology Normal (NORMAL)
[2020-04-10] MEDS ORDERED: DILTIAZEM HCL 5 MG/ML VIAL IV ONE ×2 (13:50→14:19)
[2020-04-10 14:08] LABS: Urine Bilirubin 3 mg/dl (NEGATIVE); Urine Ketone 5 mg/dL (NEGATIVE); Urine Nitrite Negative (NEGATIVE); Urine Protein Negative (NEGATIVE); Urine Specific Gravity >=1.030 SP.GR. (1.005-1.030); Urine Urobilinogen Normal (NORMAL); Urine pH 5.5 pH (5.0-7.0)
[2020-04-10 14:17] LABS: Urine Appearance Cloudy (CLEAR); Urine Bacteria 1+; Urine Blood 5 /ul (NEGATIVE); Urine Color Dark Yellow; Urine RBC 0-5 /hpf (0-5); Urine WBC 0-5 /hpf (0-5)
[2020-04-10 14:18] LABS: Urine Amorphous Sediment Many - 3+ (NONE-FEW); Urine Fine Granular Cast 0-5 /LPF; Urine Hyaline Cast 0-5 /LPF
--- NOTE | 2020-04-10 15:19 | HP ---
Chief Complaint - Chief Complaint Date of Service: 04/10/20 Time of Service: 14:49 Chief Complaint: Altered mental status History of Present Illness: 74-year-old male history of alcoholism, atrial fibrillation on anticoagulation, recurrent falls, CVA with residual expressive aphasia, hypertension, insomnia, constipation presents from home status post fall. He was found by home health today having had a fall and with altered mentation. Home health had not been to his house for the last 2 weeks and no one was in touch with him so last time he was seen normal is unknown. Patient is currently responsive but is not able to answer my questions appropriately. He nods his head and shakes his head. He does not seem to remember what happened. He has 1 brother who lives in [place] and the brother states patient is stubborn and noncompliant.. In the emergency department he was found to have tachycardia of 135, sodium of 153, creatinine of 1.8, GFR 39, BUN 91. In January 2020 BUN was 17, creatinine was 1, and GFR was 77. Currently lactic acid is 3.6, CK of 388, chloride of 0.4, hemoglobin 19.5 and hematocrit 61, white blood cell count of 18.9. He is severely dehydrated and has received 1 L of normal saline in the ER. He also received 1 dose of diltiazem IV for A. fib with RVR. We will admit him for further management of the dehydration. Medical History (Last Reviewed 04/10/20 @ 13:45 by Ysabel King RN) CVA (cerebral vascular accident) (Acute) Expressive aphasia (Acute) Constipation (Chronic) Sarbjit is 73 and has never had a screening colonoscopy. I recommended that he have one but he is afraid to have anesthesia and refuses. He has a Cologuard kit at home that he is never used and I strongly recommended that he use that at least. He understands that if that is positive and he would need a diagnostic colonoscopy. Screening for prostate cancer (Acute) Colon cancer screening (Acute) Medicare annual wellness visit, subsequent (Acute) Knee pain, right (Chronic) Alcoholism (Chronic) Onset Date: Unknown [email or web address] Insomnia (Chronic) Onset Date: Unknown Hypertension (Chronic) Onset Date: Unknown BPH (benign prostatic hyperplasia) (Chronic) Onset Date: Unknown Atrial fibrillation (Chronic) Onset Date: Unknown Cataracts, bilateral Onset Date: Unknown Gout Onset Date: Unknown Surgical History: Surgical History (Last Reviewed 04/10/20 @ 12:42 by Ysabel King RN) H/O eye surgery Onset Date: ~12/25/18 both eyes: laser treatment History of cataract surgery Onset Date: ~2014 bilaeral Family History: Family History (Last Reviewed 04/10/20 @ 13:45 by Ysabel King RN) Father , age 80 Cancer liver cancer Mother , age 70's Cancer bladder cancer Brother , age 60's Alcoholism Social History: (Last Reviewed 04/10/20 @ 13:45 by Ysabel King RN) Social History: group home: No Marital status: Single lives independently: Yes household members: none current occupational status: retired current occupation: retired Highest level of school completed/degree received: high school graduate Service: Yes branch: [employer] status: retired Tobacco: Smoking Status: Former smoker Alcohol: alcohol intake: current details: drinks 1/2 gallon vodka every 2 weeks Substance Use: substance use type: does not use Dietary Habits: caffeine: Yes Review Of Systems (GEN) - Review of Systems Generalized/Overall Review: Absent: Fever Respiratory: Absent: Shortness of Breath Abdominal: Absent: Abdominal Pain Endocrine: Present: Increased Thirst Misc: All systems neg except as marked Immunizations: IMMUNIZATION HX Immunizations Up to Date Yes History of Influenza Vaccine No Hx Pneumococcal Vaccination No Allergies/Adverse Reactions: Allergies Allergy/AdvReac Type Severity Reaction Status Date / Time No Known Allergies Allergy Verified 04/10/20 12:09 Home Medications: HOME MEDICATIONS Cholecalciferol (Vitamin D3) [Vitamin D3] 2,000 unit PO DAILY 11/27/14 [Last Taken Unknown] Multivitamins [Multivitamin Aubrey] 1 cap PO DAILY 11/27/14 [Last Taken Unknown] diltiazem HCl 300 mg capsule,extended release 24 hr 300 mg PO DAILY #30 cap.er.24h 11/30/19 [Last Taken Unknown] finasteride 5 mg tablet 5 mg PO DAILY #90 tab 12/31/19 [Last Taken Unknown] Brimonidine 0.2% Ophthalmic Solution 1 drp EACHEYE TID 01/26/20 [Last Taken Unknown] Folic Acid 1 mg PO DAILY 01/26/20 [Last Taken Unknown] traZODone HCL [Trazodone HCl] 50 mg PO HS 01/26/20 [Last Taken Unknown] apixaban 5 mg tablet 5 mg PO BID #180 tab 03/27/20 [Last Taken Unknown] Exam - Exam Vital Signs: Vital Signs - Last Taken Temp 35.6 C L 04/10/20 12:06 Pulse 105 H 04/10/20 14:15 Resp 18 04/10/20 14:15 BP 124/86 04/10/20 14:15 Pulse Ox 94 04/10/20 14:15 Constitutional: Present: Alert, Cooperative, Well developed, No distress, Elderly ENT Exam: Present: hearing grossly normal Eye Exam: bilateral eye: normal inspection, PERRL Neck: Present: non-tender, supple. Absent: lymphadenopathy (R), lymphadenopathy (L) Respiratory: Present: lungs clear, no respiratory distress, no accessory muscle use, No wheezing. Absent: crackles, rhonchi Cardiovascular/Chest: Present: no edema, no murmur, tachycardia Peripheral Pulses: dorsalis-pedis (R): 1+, dorsalis-pedis (L): 1+ Abdomen: Present: Normal bowel sounds, soft, nontender Extremity: Present: no pedal edema Skin Exam: Present: normal color, warm/dry, other - Head: Abrasion noted on right temporal region Neurologic: Present: alert, other - Expressive aphasia Appearance: Present: appropriate appearance, impaired insight Eye contact: Present: cooperative, good eye contact Thoughts: Present: normal mood /affect Diagnostic Studies: Abnormal Lab Results 04/10/20 04/10/20 04/10/20 Range/Units 12:53 12:53 12:53 WBC 18.9 H (4.0-10.5) K/mm3 Hgb 19.5 H (13.5-18.0) gm/dL Hct 61.0 H (42.0-52.0) % MCV 102.7 H (78-100) fl MCH 32.8 H (27-31) pg Neutrophils % (Manual) 82 H (42-75) % Lymphocytes % (Manual) 10 L (20-51) % Neutrophils # (Manual) 15.5 H (1.3-6.0) K/mm3 Monocytes # (Manual) 1.5 H (0.0-1.0) k/mm3 PT 17.1 H (9.1-10.7) Seconds INR (Anticoag Therapy) 1.77 H (0.92-1.08) INR Sodium 153 H (132-142) mmol/L Plasma Sodium 153 H (130-142) mmol/L Chloride 114 H (97-106) mmol/L Anion Gap 15.2 H (6.8-13.8) mmol/L BUN 91 H D (6-23) mg/dL Creatinine 1.80 H D (0.4-1.4) mg/dL Est GFR (Non-Af Amer) 39 L D (60-130) mL/min BUN/Creatinine Ratio 50.6 H (9.0-21.6) Random Glucose 129 H (70-110) mg/dL Lactic Acid, Venous (0.4-2.0) mmol/L Calcium Adj for Albumin 10.6 H (8.4-10.2) mg/dL Total Bilirubin 1.6 H (0.0-1.1) mg/dL Creatine Kinase 388 H (0-259) U/L Troponin I 0.406 H* (0.00-0.10) ng/mL Albumin 2.8 L (3.4-5.0) gm/dl Urine Blood (NEGATIVE) /ul Urine Bilirubin (NEGATIVE) mg/dl Ur Epithelial Cells (0-5) /hpf Amorphous Sediment (NONE-FEW) Urine Bacteria (NONE) Hyaline Casts (NONE) /LPF Fine Granular Casts (NONE) /LPF 04/10/20 04/10/20 Range/Units 12:53 13:58 WBC (4.0-10.5) K/mm3 Hgb (13.5-18.0) gm/dL Hct (42.0-52.0) % MCV (78-100) fl MCH (27-31) pg Neutrophils % (Manual) (42-75) % Lymphocytes % (Manual) (20-51) % Neutrophils # (Manual) (1.3-6.0) K/mm3 Monocytes # (Manual) (0.0-1.0) k/mm3 PT (9.1-10.7) Seconds INR (Anticoag Therapy) (0.92-1.08) INR Sodium (132-142) mmol/L Plasma Sodium (130-142) mmol/L Chloride (97-106) mmol/L Anion Gap (6.8-13.8) mmol/L BUN (6-23) mg/dL Creatinine (0.4-1.4) mg/dL Est GFR (Non-Af Amer) (60-130) mL/min BUN/Creatinine Ratio (9.0-21.6) Random Glucose (70-110) mg/dL Lactic Acid, Venous 3.6 H* (0.4-2.0) mmol/L Calcium Adj for Albumin (8.4-10.2) mg/dL Total Bilirubin (0.0-1.1) mg/dL Creatine Kinase (0-259) U/L Troponin I (0.00-0.10) ng/mL Albumin (3.4-5.0) gm/dl Urine Blood 5 H (NEGATIVE) /ul Urine Bilirubin 3 H (NEGATIVE) mg/dl Ur Epithelial Cells 5-10 H (0-5) /hpf Amorphous Sediment Many - 3+ H (NONE-FEW) Urine Bacteria 1+ H (NONE) Hyaline Casts 0-5 H (NONE) /LPF Fine Granular Casts 0-5 H (NONE) /LPF Laboratory Results WBC 18.9 K/mm3 (4.0-10.5) H 04/10/20 12:53 RBC 5.94 M/mm3 (4.7-6.0) 04/10/20 12:53 Hgb 19.5 gm/dL (13.5-18.0) H 04/10/20 12:53 Hct 61.0 % (42.0-52.0) H 04/10/20 12:53 MCV 102.7 fl (78-100) H 04/10/20 12:53 MCH 32.8 pg (27-31) H 04/10/20 12:53 MCHC 32.0 g/dl (32-36) 04/10/20 12:53 RDW 13.5 % (11.5-14.0) 04/10/20 12:53 Plt Count 383 K/mm3 (150-450) 04/10/20 12:53 MPV 11.0 fl (8-11.3) 04/10/20 12:53 Neutrophils % (Manual) 82 % (42-75) H 04/10/20 12:53 Lymphocytes % (Manual) 10 % (20-51) L 04/10/20 12:53 Monocytes % (Manual) 8 % (0-9) 04/10/20 12:53 Neutrophils # (Manual) 15.5 K/mm3 (1.3-6.0) H 04/10/20 12:53 Lymphocytes # (Manual) 1.9 k/mm3 (1.5-3.5) 04/10/20 12:53 Monocytes # (Manual) 1.5 k/mm3 (0.0-1.0) H 04/10/20 12:53 Platelet Estimate Normal (NORMAL) 04/10/20 12:53 RBC Morphology Normal (NORMAL) 04/10/20 12:53 PT 17.1 Seconds (9.1-10.7) H 04/10/20 12:53 INR (Anticoag Therapy) 1.77 INR (0.92-1.08) H 04/10/20 12:53 Sodium 153 mmol/L (132-142) H 04/10/20 12:53 Plasma Sodium 153 mmol/L (130-142) H 04/10/20 12:53 Potassium 3.9 mmol/L (3.4-4.6) 04/10/20 12:53 Chloride 114 mmol/L (97-106) H 04/10/20 12:53 Carbon Dioxide 27.7 mmol/L (24-32.6) 04/10/20 12:53 Anion Gap 15.2 mmol/L (6.8-13.8) H 04/10/20 12:53 BUN 91 mg/dL (6-23) H D 04/10/20 12:53 Creatinine 1.80 mg/dL (0.4-1.4) H D 04/10/20 12:53 Est GFR (Non-Af Amer) 39 mL/min (60-130) L D 04/10/20 12:53 BUN/Creatinine Ratio 50.6 (9.0-21.6) H 04/10/20 12:53 Random Glucose 129 mg/dL (70-110) H 04/10/20 12:53 Lactic Acid, Venous 3.6 mmol/L (0.4-2.0) H* 04/10/20 12:53 Calcium 10.0 mg/dL (7.9-10.9) 04/10/20 12:53 Calcium Adj for Albumin 10.6 mg/dL (8.4-10.2) H 04/10/20 12:53 Total Bilirubin 1.6 mg/dL (0.0-1.1) H 04/10/20 12:53 AST 31 U/L (0-48) 04/10/20 12:53 ALT 22 U/L (19-67) 04/10/20 12:53 Alkaline Phosphatase 92 U/L (50-170) 04/10/20 12:53 Creatine Kinase 388 U/L (0-259) H 04/10/20 12:53 Troponin I 0.406 ng/mL (0.00-0.10) H* 04/10/20 12:53 Total Protein 6.9 gm/dL (6.2-8.2) 04/10/20 12:53 Albumin 2.8 gm/dl (3.4-5.0) L 04/10/20 12:53 Urine Color Dark yellow 04/10/20 13:58 Urine Appearance Cloudy (CLEAR) 04/10/20 13:58 Urine pH 5.5 pH (5.0-7.0) 04/10/20 13:58 Ur Specific [place] >=1.030 SP.GR. (1.005-1.030) 04/10/20 13:58 Urine Protein Negative mg/dL (NEGATIVE) 04/10/20 13:58 Urine Glucose (UA) Negative mg/dL (NEGATIVE) 04/10/20 13:58 Urine Ketones 5 mg/dL (NEGATIVE) 04/10/20 13:58 Urine Blood 5 /ul (NEGATIVE) H 04/10/20 13:58 Urine Nitrate Negative (NEGATIVE) 04/10/20 13:58 Urine Bilirubin 3 mg/dl (NEGATIVE) H 04/10/20 13:58 Urine Urobilinogen Normal EU/dl (NORMAL) 04/10/20 13:58 Ur Leukocyte Esterase Negative /ul (NEGATIVE) 04/10/20 13:58 Urine RBC 0-5 /hpf (0-5) 04/10/20 13:58 Urine WBC 0-5 /hpf (0-5) 04/10/20 13:58 Ur Epithelial Cells 5-10 /hpf (0-5) H 04/10/20 13:58 Amorphous Sediment Many - 3+ (NONE-FEW) H 04/10/20 13:58 Urine Bacteria 1+ (NONE) H 04/10/20 13:58 Hyaline Casts 0-5 /LPF (NONE) H 04/10/20 13:58 Fine Granular Casts 0-5 /LPF (NONE) H 04/10/20 13:58 Urine Culture Comments No culture indicated 04/10/20 13:58 Ethyl Alcohol Less than 3.0 mg/dL (0.0-10.0) 04/10/20 12:53 SARS-CoV-2 (PCR) Not detected (NotDetected) 04/10/20 13:45 Assessment/Plan - Narrative Narrative: 74-year-old male history of alcoholism, atrial fibrillation on anticoagulation, recurrent falls, CVA with residual expressive aphasia, hypertension, insomnia, constipation presents from home status post fall. He was found by home health today having had a fall and with altered mentation. Home health had not been to his house for the last 2 weeks and no one was in touch with him so last time he was seen normal is unknown. Patient is currently responsive but is not able to answer my questions appropriately. He nods his head and shakes his head. He does not seem to remember what happened. He has 1 brother who lives in [place] and the brother states patient is stubborn and noncompliant.. In the emergency department he was found to have tachycardia of 135, sodium of 153, creatinine of 1.8, GFR 39, BUN 91. In January 2020 BUN was 17, creatinine was 1, and GFR was 77. Currently lactic acid is 3.6, CK of 388, chloride of 0.4, hemoglobin 19.5 and hematocrit 61, white blood cell count of 18.9. He is severely dehydrated and has received 1 L of normal saline in the ER. He also received 1 dose of diltiazem IV for A. fib with RVR. We will admit him for further management of the dehydration. His free water deficit is 6.9 L. I will assume be hyponatremia has been pres ent for more than 48 hours and therefore is chronic. Goal correction of sodium is no more than 10 to 12 mEq/ 24 hours. Plan #1 start D5 water at 100 cc/h. Repeat sodium level at 8 PM #2 resume home medications for comorbidities #3 CBC and CMP in the morning - Assessment/Plan (1) Hypernatremia Problem: Acute (2) Dehydration Problem: Acute (3) Acute kidney injury Problem: Acute (4) Metabolic encephalopathy Problem: Acute (5) Expressive aphasia Problem: Chronic (6) Fall at home Problem: Acute Qualifiers: Encounter type: initial encounter Qualified Code(s): W19.XXXA - Unspecified fall, initial encounter; Y92.009 - Unspecified place in unspecified non-institutional (private) residence as the place of occurrence of the external cause (7) Alcoholism Problem: Chronic (8) Hypertension Problem: Chronic Qualifiers: Hypertension type: essential hypertension Qualified Code(s): I10 - Essential (primary) hypertension (9) Atrial fibrillation Problem: Chronic Qualifiers: (10) Recurrent falls Problem: Acute
[2020-04-10] MEDS ORDERED: DEXTROSE 5 % IN WATER 1,000 ML IV PRN (15:24)
[2020-04-10] MEDS: FINASTERIDE 5 MG TABLET PO SCH (19:44)
[2020-04-10] MEDS: FOLIC ACID 1 MG TABLET PO SCH (19:44)
[2020-04-10] MEDS ORDERED: DEXTROSE 5%-NORMAL SALINE 1,000 ML IV PRN (20:56)
[2020-04-11] MEDS: traZODone HCL 50 MG TABLET PO SCH ×2 (00:14→20:20)
[2020-04-11] MEDS: APIXABAN 5 MG TABLET PO SCH ×3 (00:14→20:20)
[2020-04-11 06:19] LABS: Hematocrit 57.2 % (42.0-52.0); Hemoglobin 17.9 gm/dL (13.5-18.0); Mean Cell Volume 105.7 fl (78-100); Mean Corpuscular Hemoglobin 33.1 pg (27-31); Mean Corpuscular Hgb Conc 31.3 g/dl (32-36); Mean Platelet Volume 11.2 fl (8-11.3); Platelet Count 316 K/mm3 (150-450); Red Blood Count 5.41 M/mm3 (4.7-6.0); Red Cell Distribution Width 13.8 % (11.5-14.0); White Blood Count 17.1 K/mm3 (4.0-10.5)
[2020-04-11 06:30] LABS: Albumin * 2.6 gm/dl (3.4-5.0); Anion Gap 15.7 mmol/L (6.8-13.8); BUN/Creatinine Ratio 60.2 (9.0-21.6); Bilirubin, Total 1.3 mg/dL (0.0-1.1); Carbon Dioxide 26.9 mmol/L (24-32.6); Potassium 3.6 mmol/L (3.4-4.6); Total Protein 5.8 gm/dL (6.2-8.2)
[2020-04-11 06:51] LABS: Calcium * 9.2 mg/dL (7.9-10.9)
[2020-04-11 06:53] LABS: Total Cells Counted 100
[2020-04-11 07:23] LABS: Band 1 % (0-2.0); Lymphocyte 6 % (20-51); Monocyte 8 % (0-9); Neutrophil 85 % (42-75); Neutrophil # 14.5 K/mm3 (1.3-6.0); Platelet Estimate Normal (NORMAL); RBC Morphology Normal (NORMAL)
[2020-04-11] MEDS: BRIMONIDINE TARTRATE 50 DROP BTL EACHEYE SCH ×4 (07:55→17:00)
[2020-04-11] MEDS: DILTIAZEM HCL 180 MG CAP.SR.24H PO SCH ×3 (08:54→13:14)
[2020-04-11] MEDS: DILTIAZEM HCL 120 MG CAP.SR.24H PO SCH ×3 (08:55→13:14)
[2020-04-11] MEDS: FINASTERIDE 5 MG TABLET PO SCH (08:58)
[2020-04-11] MEDS: FOLIC ACID 1 MG TABLET PO SCH (08:58)
[2020-04-11] MEDS: MULTIVITAMINS 1 CAP CAPSULE PO SCH (08:58)
[2020-04-11] MEDS ORDERED: DILTIAZEM HCL 120 MG CAP.SR.24H PO SCH (09:00)
[2020-04-11] MEDS: NORMAL SALINE 1,000 ML IV SCH ×2 (11:01→19:11)
[2020-04-11] MEDS ORDERED: NORMAL SALINE 1,000 ML IV ONE ×2 (15:31→15:34)
[2020-04-11] MEDS ORDERED: METOPROLOL TARTRATE 1 MG/ML AMPUL IV ONE (15:48)
--- NOTE | 2020-04-11 15:50 | PN ---
Subjective - Date and Time Seen Date: 04/11/20 Time: 15:36 Subjective Narrative: Patient is somnolent, laying in bed. Minimal conversation, unsure how much he is understanding. He shakes his head when asked about being in pain but otherwise is pretty why. Patient still appears to be confused. I do not know what patient is like at baseline but after reviewing charts it looks like patient was fairly dehydrated. Patient had an elevated lactic acid at 3.5. This was not repeated. Repeated again came back at 3.1. Will start patient on fluids as he does not have any, and due to his confusion his oral intake has been minimal. He does have some slurring of speech. We will also order speech to come and evaluate him. Negative infection in his urine and blood up-to-date. He did have an elevated white count but unsure of how much that is due to infection versus dehydration. Do not have a source at this time. He is not currently on antibiotics. Otherwise vital signs are stable aside from some intermittent tachycardia. Objective Objective Narrative: Patient denies pain. Unable to get rest of review of systems due to patient's somnolence. - Vitals Vitals: Last Vital Signs Temp 36.6 C 04/11/20 15:12 Pulse 80 04/11/20 15:12 Resp 20 04/11/20 15:12 BP 132/87 04/11/20 15:12 Pulse Ox 95 04/11/20 15:12 - Abnormal Lab Findings Abnormal Lab Findings: Abnormal Lab Results 04/10/20 04/10/20 04/11/20 Range/Units 15:50 20:08 05:45 WBC 17.1 H (4.0-10.5) K/mm3 Hct 57.2 H (42.0-52.0) % MCV 105.7 H (78-100) fl MCH 33.1 H (27-31) pg MCHC 31.3 L (32-36) g/dl Neutrophils % (Manual) 85 H (42-75) % Lymphocytes % (Manual) 6 L (20-51) % Neutrophils # (Manual) 14.5 H (1.3-6.0) K/mm3 Lymphocytes # (Manual) 1.0 L (1.5-3.5) k/mm3 Monocytes # (Manual) 1.4 H (0.0-1.0) k/mm3 Sodium 144 H (132-142) mmol/L Plasma Sodium (130-142) mmol/L Chloride (97-106) mmol/L Anion Gap (6.8-13.8) mmol/L BUN (6-23) mg/dL Est GFR (Non-Af Amer) (60-130) mL/min BUN/Creatinine Ratio (9.0-21.6) Random Glucose (70-110) mg/dL Lactic Acid, Venous 3.5 H* (0.4-2.0) mmol/L Total Bilirubin (0.0-1.1) mg/dL Troponin I (0.00-0.10) ng/mL Total Protein (6.2-8.2) gm/dL Albumin (3.4-5.0) gm/dl 04/11/20 04/11/20 04/11/20 Range/Units 05:45 09:52 09:52 WBC (4.0-10.5) K/mm3 Hct (42.0-52.0) % MCV (78-100) fl MCH (27-31) pg MCHC (32-36) g/dl Neutrophils % (Manual) (42-75) % Lymphocytes % (Manual) (20-51) % Neutrophils # (Manual) (1.3-6.0) K/mm3 Lymphocytes # (Manual) (1.5-3.5) k/mm3 Monocytes # (Manual) (0.0-1.0) k/mm3 Sodium 156 H (132-142) mmol/L Plasma Sodium 156 H (130-142) mmol/L Chloride 117 H (97-106) mmol/L Anion Gap 15.7 H (6.8-13.8) mmol/L BUN 77 H (6-23) mg/dL Est GFR (Non-Af Amer) 58 L D (60-130) mL/min BUN/Creatinine Ratio 60.2 H (9.0-21.6) Random Glucose 121 H (70-110) mg/dL Lactic Acid, Venous 3.1 H* (0.4-2.0) mmol/L Total Bilirubin 1.3 H (0.0-1.1) mg/dL Troponin I 0.319 H* (0.00-0.10) ng/mL Total Protein 5.8 L (6.2-8.2) gm/dL Albumin 2.6 L (3.4-5.0) gm/dl 04/11/20 Range/Units 13:56 WBC (4.0-10.5) K/mm3 Hct (42.0-52.0) % MCV (78-100) fl MCH (27-31) pg MCHC (32-36) g/dl Neutrophils % (Manual) (42-75) % Lymphocytes % (Manual) (20-51) % Neutrophils # (Manual) (1.3-6.0) K/mm3 Lymphocytes # (Manual) (1.5-3.5) k/mm3 Monocytes # (Manual) (0.0-1.0) k/mm3 Sodium (132-142) mmol/L Plasma Sodium (130-142) mmol/L Chloride (97-106) mmol/L Anion Gap (6.8-13.8) mmol/L BUN (6-23) mg/dL Est GFR (Non-Af Amer) (60-130) mL/min BUN/Creatinine Ratio (9.0-21.6) Random Glucose (70-110) mg/dL Lactic Acid, Venous 4.5 H* (0.4-2.0) mmol/L Total Bilirubin (0.0-1.1) mg/dL Troponin I (0.00-0.10) ng/mL Total Protein (6.2-8.2) gm/dL Albumin (3.4-5.0) gm/dl - Exam Constitutional: Present: Somnolent, Elderly ENT Exam: Present: hard of hearing Neck: Present: non-tender, supple Respiratory: Present: lungs clear, no respiratory distress. Absent: crackles, wheezing Cardiovascular/Chest: Present: regular rate, rhythm, no murmur. Absent: edema Abdomen: Present: soft, nontender, nondistended Skin Exam: Present: normal color, warm/dry Assessment/Plan Plan Narrative: Patient is a mess, unsure of his baseline cognitive function he does have a history of expressive aphasia as well. Unsure of what he look like yesterday but patient still appears to be fairly dry and somnolent. Continue fluids, provide another bolus. Repeat lactic acid and BMP this evening. Also check procalcitonin to make sure leukocytosis is not due to infection. Ordered speech evaluation to make sure it safe for him to eat. Will bolus him on fluids again. Patient with intermittent atrial fibrillation. Patient is on apixaban, diltiazem. Patient's sodium relatively unchanged, but patient has got minimal fluids since being here. Will repeat BMP. Consider sodium work-up if needed. Metabolic encephalopathy secondary to somnolence, dehydration, hyponatremia. Continue chronic medications for other comorbidities. - Problems/Diagnosis (1) Dehydration Problem: Acute (2) Hypernatremia Problem: Acute (3) Lactic acidemia Problem: Acute (4) Leukocytosis Problem: Acute (5) Hypertension Problem: Chronic Qualifiers: Hypertension type: essential hypertension Qualified Code(s): I10 - Essential (primary) hypertension (6) Expressive aphasia Problem: Chronic
[2020-04-11] MEDS ORDERED: FUROSEMIDE 10 MG/ML VIAL IV ONE (16:42)
[2020-04-11] MEDS ORDERED: LEVALBUTEROL HCL 1.25 MG/3 ML AMPUL IH ONE (17:22)
[2020-04-12 07:31] LABS: Hematocrit 54.6 % (42.0-52.0); Hemoglobin 17.1 gm/dL (13.5-18.0); Mean Cell Volume 104.2 fl (78-100); Mean Corpuscular Hemoglobin 32.6 pg (27-31); Mean Corpuscular Hgb Conc 31.3 g/dl (32-36); Mean Platelet Volume 10.9 fl (8-11.3); Neutrophil # 14.1 K/mm3 (1.3-6.0); Neutrophil % 85.1 % (42-75.0); Platelet Count 305 K/mm3 (150-450); Red Blood Count 5.24 M/mm3 (4.7-6.0); Red Cell Distribution Width 13.8 % (11.5-14.0); White Blood Count 16.5 K/mm3 (4.0-10.5)
[2020-04-12 07:38] LABS: Anion Gap 12.3 mmol/L (6.8-13.8); BUN/Creatinine Ratio 43.8 (9.0-21.6); Blood Urea Nitrogen 67 mg/dL (6-23); Calcium * 9.4 mg/dL (7.9-10.9); Carbon Dioxide 29.6 mmol/L (24-32.6); Chloride 122 mmol/L (97-106); Glucose * 148 mg/dL (70-110); Potassium 3.9 mmol/L (3.4-4.6)
[2020-04-12 07:42] LABS: Sodium 160 mmol/L (132-142)
[2020-04-12 07:46] LABS: Total Cells Counted 100
[2020-04-12 07:56] LABS: Atypical (Reactive) Lymph 4 % (0-2); Band 4 % (0-2.0); Lymphocyte 5 % (20-51); Monocyte 10 % (0-9); Neutrophil 77 % (42-75)
[2020-04-12 07:57] LABS: Platelet Estimate Normal (NORMAL); RBC Morphology Normal (NORMAL)
[2020-04-12] MEDS: DEXTROSE 5 % IN WATER 1,000 ML IV PRN (10:00)
[2020-04-12] MEDS: BRIMONIDINE TARTRATE 50 DROP BTL EACHEYE SCH ×3 (10:02→16:12)
[2020-04-12] MEDS: FINASTERIDE 5 MG TABLET PO SCH (10:03)
[2020-04-12] MEDS: DILTIAZEM HCL 120 MG CAP.SR.24H PO SCH (10:03)
[2020-04-12] MEDS: FOLIC ACID 1 MG TABLET PO SCH (10:03)
[2020-04-12] MEDS: APIXABAN 5 MG TABLET PO SCH ×2 (10:03→20:21)
[2020-04-12] MEDS: DILTIAZEM HCL 180 MG CAP.SR.24H PO SCH (10:03)
[2020-04-12] MEDS: MULTIVITAMINS 1 CAP CAPSULE PO SCH (10:03)
[2020-04-12] MEDS ORDERED: LORazepam 0.5 MG TABLET PO PRN (10:10)
[2020-04-12] MEDS: traZODone HCL 50 MG TABLET PO SCH (20:21)
[2020-04-13] MEDS: DEXTROSE 5 % IN WATER 1,000 ML IV PRN ×2 (00:03→16:18)
--- NOTE | 2020-04-13 06:28 | PN ---
Subjective - Date and Time Seen Date: 04/12/20 Time: 11:45 Subjective Narrative: Does not awaken, withdrawns from stimulus. Weaned to room air after being on oxygen overnight. Objective - Vitals Vitals: Last Vital Signs Temp 36.5 C 04/13/20 02:58 Pulse 111 H 04/13/20 02:58 Resp 26 H 04/13/20 02:58 BP 133/76 04/13/20 02:58 Pulse Ox 90 L 04/13/20 02:58 - Abnormal Lab Findings Abnormal Lab Findings: Abnormal Lab Results 04/12/20 04/12/20 04/12/20 Range/Units 07:26 07:26 07:26 WBC 16.5 H (4.0-10.5) K/mm3 Hct 54.6 H (42.0-52.0) % MCV 104.2 H (78-100) fl MCH 32.6 H (27-31) pg MCHC 31.3 L (32-36) g/dl Immature Gran % (Auto) 0.70 H (0.001-0.429) % Immature Gran # (Auto) 0.11 H (0.000-0.0310) K/mm3 Neutrophils % 85.1 H (42-75.0) % Neutrophils % (Manual) 77 H (42-75) % Band Neuts % (Manual) 4 H (0-2.0) % Lymphocytes % 4.6 L (20-51) % Lymphocytes % (Manual) 5 L (20-51) % Monocytes % 9.1 H (0.0-9) % Monocytes % (Manual) 10 H (0-9) % Neutrophils # 14.1 H (1.3-6.0) K/mm3 Neutrophils # (Manual) 0.0 L (1.3-6.0) K/mm3 Lymphocytes # 0.76 L (1.5-3.5) k/mm3 Lymphocytes # (Manual) 0.0 L (1.5-3.5) k/mm3 Monocytes # 1.5 H (0.0-1.0) k/mm3 Atypic/Reactive Lymphs 4 H (0-2) % Sodium 160 H (132-142) mmol/L Plasma Sodium 161 H* (130-142) mmol/L Chloride 122 H (97-106) mmol/L BUN 67 H (6-23) mg/dL Creatinine 1.53 H (0.4-1.4) mg/dL Est GFR (Non-Af Amer) 47 L (60-130) mL/min BUN/Creatinine Ratio 43.8 H (9.0-21.6) Random Glucose 148 H (70-110) mg/dL - Exam Constitutional: Present: Obtunded Respiratory: Present: decreased breath sounds Cardiovascular/Chest: Present: regular rate, rhythm, no murmur Abdomen: Present: Normal bowel sounds, soft, nontender Skin Exam: Present: normal color, warm/dry Assessment/Plan Plan Narrative: Will evaluate with brain MRI due to altered mental status, concern for stroke. Sodium is also extremely high. Will start D5W at gentle hydration to correct. - Problems/Diagnosis (1) Hypernatremia Problem: Acute (2) Metabolic encephalopathy Problem: Acute (3) Atrial fibrillation Problem: Chronic Qualifiers: (4) Expressive aphasia Problem: Chronic
[2020-04-13 08:14] LABS: Anion Gap 10.3 mmol/L (6.8-13.8); BUN/Creatinine Ratio 42.5 (9.0-21.6); Calcium * 9.7 mg/dL (7.9-10.9); Estimated Creat Clear 54.4; Potassium 3.3 mmol/L (3.4-4.6)
[2020-04-13] MEDS: FOLIC ACID 1 MG TABLET PO SCH (09:07)
[2020-04-13] MEDS: MULTIVITAMINS 1 CAP CAPSULE PO SCH (09:07)
[2020-04-13] MEDS: DILTIAZEM HCL 120 MG CAP.SR.24H PO SCH (09:07)
[2020-04-13] MEDS: DILTIAZEM HCL 180 MG CAP.SR.24H PO SCH (09:07)
[2020-04-13] MEDS: FINASTERIDE 5 MG TABLET PO SCH (09:07)
[2020-04-13] MEDS: POTASSIUM CHLORIDE IN WATER 100 ML IV SCH ×4 (09:09→13:05)
[2020-04-13] MEDS: ENOXAPARIN SODIUM 40 MG/0.4 ML SYRG SC SCH (09:09)
[2020-04-13] MEDS: BRIMONIDINE TARTRATE 50 DROP BTL EACHEYE SCH ×3 (09:09→16:19)
[2020-04-13] MEDS: traZODone HCL 50 MG TABLET PO SCH (20:40)
--- NOTE | 2020-04-13 21:41 | PN ---
Subjective - Date and Time Seen Date: 04/13/20 Time: 08:30 Subjective Narrative: Sarbjit is a little more alert today. Awakens and verbally responds briefly before falling back asleep. Sodium a little improved to 157, Potassium a little low at 3.3. Objective - Vitals Vitals: Last Vital Signs Temp 36.1 C 04/13/20 16:00 Pulse 109 H 04/13/20 18:36 Resp 22 H 04/13/20 18:36 BP 129/82 04/13/20 18:36 Pulse Ox 93 04/13/20 18:36 - Abnormal Lab Findings Abnormal Lab Findings: Abnormal Lab Results 04/13/20 Range/Units 07:58 Sodium 156 H (132-142) mmol/L Plasma Sodium 157 H (130-142) mmol/L Potassium 3.3 L (3.4-4.6) mmol/L Chloride 119 H (97-106) mmol/L BUN 54 H (6-23) mg/dL Est GFR (Non-Af Amer) 59 L D (60-130) mL/min BUN/Creatinine Ratio 42.5 H (9.0-21.6) Random Glucose 147 H (70-110) mg/dL - Exam Constitutional: Present: Somnolent Respiratory: Present: decreased breath sounds Cardiovascular/Chest: Present: no murmur, irregularly irregular Abdomen: Present: Normal bowel sounds, soft, nontender Skin Exam: Present: normal color, warm/dry, no cyanosis Assessment/Plan Plan Narrative: Electrolytes improved. Continue D5W with gentle rate to correct hypernatremia slowly and prevent fluid overload. Potassium replaced today. No stroke present on brain MRI, suspect metabolic encephalopathy. - Problems/Diagnosis (1) Hypernatremia Problem: Acute (2) Metabolic encephalopathy Problem: Acute (3) Atrial fibrillation Problem: Chronic Qualifiers: (4) Expressive aphasia Problem: Chronic
[2020-04-14] MEDS: DEXTROSE 5 % IN WATER 1,000 ML IV PRN ×2 (04:52→09:14)
[2020-04-14 08:02] LABS: Hematocrit 51.9 % (42.0-52.0); Hemoglobin 16.4 gm/dL (13.5-18.0); Mean Corpuscular Hemoglobin 32.9 pg (27-31); Mean Corpuscular Hgb Conc 31.6 g/dl (32-36); Mean Platelet Volume 11.5 fl (8-11.3); Platelet Count 256 K/mm3 (150-450); Red Blood Count 4.99 M/mm3 (4.7-6.0); Red Cell Distribution Width 14.1 % (11.5-14.0); White Blood Count 16.3 K/mm3 (4.0-10.5)
[2020-04-14 08:06] LABS: Total Cells Counted 100
[2020-04-14 08:16] LABS: Albumin * 1.8 gm/dl (3.4-5.0); Anion Gap 12.1 mmol/L (6.8-13.8); BUN/Creatinine Ratio 36.8 (9.0-21.6); Bilirubin, Total 1.1 mg/dL (0.0-1.1); Ca. Corrected For Albumin 10.8 mg/dL (8.4-10.2); Calcium * 9.4 mg/dL (7.9-10.9); Carbon Dioxide 28.5 mmol/L (24-32.6); Potassium 3.6 mmol/L (3.4-4.6); Total Protein 6.1 gm/dL (6.2-8.2)
[2020-04-14 08:26] LABS: Band 7 % (0-2.0); Lymphocyte 4 % (20-51); Monocyte 8 % (0-9); Neutrophil 81 % (42-75); Neutrophil # 13.2 K/mm3 (1.3-6.0)
[2020-04-14 08:27] LABS: Giant Platelets Trace; Platelet Estimate Normal (NORMAL)
[2020-04-14] MEDS: FINASTERIDE 5 MG TABLET PO SCH (09:10)
[2020-04-14] MEDS: FOLIC ACID 1 MG TABLET PO SCH (09:10)
[2020-04-14] MEDS: BRIMONIDINE TARTRATE 50 DROP BTL EACHEYE SCH ×2 (09:10→17:03)
[2020-04-14] MEDS: MULTIVITAMINS 1 CAP CAPSULE PO SCH (09:10)
[2020-04-14] MEDS: DILTIAZEM HCL 180 MG CAP.SR.24H PO SCH (09:10)
[2020-04-14] MEDS: DILTIAZEM HCL 120 MG CAP.SR.24H PO SCH (09:10)
[2020-04-14] MEDS: ENOXAPARIN SODIUM 40 MG/0.4 ML SYRG SC SCH (09:11)
--- NOTE | 2020-04-14 12:29 | PN ---
Subjective - Date and Time Seen Date: 04/14/20 Time: 09:35 Subjective Narrative: He is very lethargic. He is minimally responsive to verbal and tactile stimuli. He does not follow commands. He is requiring oxygen supplementation via oxygen mask. Objective - Review of Systems Generalized/Overall Review: Denies: Fever Respiratory: Reports: Shortness of Breath Misc: All systems neg except as marked - Vitals Vitals: Last Vital Signs Temp 36.1 C 04/14/20 06:45 Pulse 112 H 04/14/20 10:04 Resp 36 H 04/14/20 07:57 BP 115/70 04/14/20 06:42 Pulse Ox 91 L 04/14/20 08:32 - Abnormal Lab Findings Abnormal Lab Findings: Abnormal Lab Results 04/14/20 04/14/20 Range/Units 07:57 07:57 WBC 16.3 H (4.0-10.5) K/mm3 MCV 104.0 H (78-100) fl MCH 32.9 H (27-31) pg MCHC 31.6 L (32-36) g/dl RDW 14.1 H (11.5-14.0) % MPV 11.5 H (8-11.3) fl Neutrophils % (Manual) 81 H (42-75) % Band Neuts % (Manual) 7 H (0-2.0) % Lymphocytes % (Manual) 4 L (20-51) % Neutrophils # (Manual) 13.2 H (1.3-6.0) K/mm3 Lymphocytes # (Manual) 0.7 L (1.5-3.5) k/mm3 Monocytes # (Manual) 1.3 H (0.0-1.0) k/mm3 Sodium 154 H (132-142) mmol/L Plasma Sodium 155 H (130-142) mmol/L Chloride 117 H (97-106) mmol/L BUN 43 H (6-23) mg/dL BUN/Creatinine Ratio 36.8 H (9.0-21.6) Random Glucose 153 H (70-110) mg/dL Calcium Adj for Albumin 10.8 H (8.4-10.2) mg/dL Total Protein 6.1 L (6.2-8.2) gm/dL Albumin 1.8 L (3.4-5.0) gm/dl - Exam Constitutional: Present: Well developed, Well nourished, Mild distress, Lethargi c, Elderly. Absent: Alert, Cooperative ENT Exam: Present: dry mucous membranes Neck: Present: supple. Absent: lymphadenopathy (R), lymphadenopathy (L) Respiratory: Present: lungs clear - Upper air sounds noted bilaterally in anterior lung loomis, no accessory muscle use, No wheezing. Absent: crackles, rhonchi Cardiovascular/Chest: Present: no edema, no murmur, tachycardia Abdomen: Present: Normal bowel sounds, soft, nontender Extremity: Present: no pedal edema Skin Exam: Present: normal color, warm/dry Neurologic: Absent: alert, normal mood/affect Appearance: Present: impaired insight Eye contact: Absent: cooperative, good eye contact Assessment/Plan Plan Narrative: 74-year-old male history of alcoholism, atrial fibrillation on anticoagulation, recurrent falls, CVA with residual expressive aphasia, hypertension, insomnia, constipation presents from home status post fall. He was found by home health today having had a fall and with altered mentation. Home health had not been to his house for the last 2 weeks and no one was in touch with him so last time he was seen normal is unknown. Patient is currently responsive but is not able to answer my questions appropriately. He nods his head and shakes his head. He does not seem to remember what happened. He has 1 brother who lives in [place] and the brother states patient is stubborn and noncompliant.. In the emergency department he was found to have tachycardia of 135, sodium of 153, creatinine of 1.8, GFR 39, BUN 91. In January 2020 BUN was 17, creatinine was 1, and GFR was 77. Currently lactic acid is 3.6, CK of 388, chloride of 0.4, hemoglobin 19.5 and hematocrit 61, white blood cell count of 18.9. He is severely dehydrated and has received 1 L of normal saline in the ER. He also received 1 dose of diltiazem IV for A. fib with RVR. We will admit him for further management of the dehydration. Patient has continued to decline over the past several days. His sodium level is still elevated at 154 this morning. Kidney function has improved. Patient continues to be lethargic and minimally responsive to verbal and tactile stimuli. He does not follow commands, is not able to safely take in food or liquids. I will order a chest x-ray and ABG. I spoke with the patient's brother Alpesh Ho this morning and explained the situation to him. I informed him that his brother will likely not do well if we have to code and intubate him. The patient's brother continues to state that he wants everything done. He states he will also discuss the situation with his sister. I will continue keeping Alpesh updated as needed. I spoke with the patient's brother Alpesh Ho again this afternoon and explained the severity of the situation. I let him know that his brother is actively dying. The patient continues to decline and is having apneic episodes with tachypnea. Chest x-ray shows left-sided infiltrates, slight worsening. ABG is still pending. Alpesh has changed the patient's CODE STATUS to a DNR/DNI. He would like us to proceed with comfort measures only. - Problems/Diagnosis (1) Hypernatremia Problem: Acute (2) Dehydration Problem: Acute (3) Acute kidney injury Problem: Acute (4) Metabolic encephalopathy Problem: Acute (5) Expressive aphasia Problem: Chronic (6) Fall at home Problem: Acute Qualifiers: Encounter type: initial encounter Qualified Code(s): W19.XXXA - Unspecified fall, initial encounter; Y92.009 - Unspecified place in unspecified non- institutional (private) residence as the place of occurrence of the external cause (7) Alcoholism Problem: Chronic (8) Hypertension Problem: Chronic Qualifiers: Hypertension type: essential hypertension Qualified Code(s): I10 - Essential (primary) hypertension (9) Atrial fibrillation Problem: Chronic Qualifiers: (10) Recurrent falls Problem: Acute (11) Lacunar infarct, acute Problem: Acute
[2020-04-14] MEDS ORDERED: DILTIAZEM HCL 5 MG/ML VIAL IV ONE (14:33)
[2020-04-14] MEDS ORDERED: DILTIAZEM HCL 125 MG in DEXTROSE 5 % IN WATER 100 ML IV PRN ×2 (14:39)
[2020-04-14] MEDS ORDERED: AZITHROMYCIN 500 MG in DEXTROSE 5 % IN WATER 250 ML IV SCH ×2 (14:45)
[2020-04-14 15:24] VITALS: BP 136/66
[2020-04-14] MEDS ORDERED: LORazepam 2 MG/ML DISP.SYRIN IV PRN (16:10)
[2020-04-14] MEDS ORDERED: GLYCERIN/PROPYLENE GLYCOL 150 DROP BTL EACHEYE PRN (16:10)
[2020-04-14] MEDS ORDERED: ATROPINE SULFATE 50 DROP BTL SL PRN (16:10)
[2020-04-14] MEDS ORDERED: PROMETHAZINE HCL 12.5 MG SUPP.RECT RC PRN (16:10)
[2020-04-14] MEDS ORDERED: MORPHINE SULFATE 10 MG/0.5 ML SYRINGE PO PRN (16:10)
[2020-04-14] MEDS: MORPHINE SULFATE 2 MG/ML DISP.SYRIN IV PRN ×2 (16:32→17:16)
--- NOTE | 2020-04-15 10:45 | DS ---
Discharge Summary - Date and Time Date of : 04/14/20 Time of : 17:30 - Diagnosis/Cause of (1) Hypernatremia Problems: Acute (2) Dehydration Problems: Acute (3) Acute kidney injury Problems: Acute (4) Metabolic encephalopathy Problems: Acute (5) Expressive aphasia Problems: Chronic (6) Fall at home Problems: Acute (7) Alcoholism Problems: Chronic (8) Hypertension Problems: Chronic (9) Atrial fibrillation Problems: Chronic (10) Recurrent falls Problems: Acute (11) Lacunar infarct, acute Problems: Acute - Summary Details (narrative): 74-year-old male history of alcoholism, atrial fibrillation on anticoagulation, recurrent falls, CVA with residual expressive aphasia, hypertension, insomnia, constipation presents from home status post fall. He was found by home health today having had a fall and with altered mentation. Home health had not been to his house for the last 2 weeks and no one was in touch with him so last time he was seen normal is unknown. Patient is currently responsive but is not able to answer my questions appropriately. He nods his head and shakes his head. He does not seem to remember what happened. He has 1 brother who lives in [place] and the brother states patient is stubborn and noncompliant.. In the emergency department he was found to have tachycardia of 135, sodium of 153, creatinine of 1.8, GFR 39, BUN 91. In January 2020 BUN was 17, creatinine was 1, and GFR was 77. Currently lactic acid is 3.6, CK of 388, chloride of 0.4, hemoglobin 19.5 and hematocrit 61, white blood cell count of 18.9. He is severely dehydrated and has received 1 L of normal saline in the ER. He also received 1 dose of diltiazem IV for A. fib with RVR. We will admit him for further management of the dehydration. Patient has continued to decline over the past several days. His sodium level is still elevated at 154 this morning. Kidney function has improved. Patient continues to be lethargic and minimally responsive to verbal and tactile stimuli. He does not follow commands, is not able to safely take in food or liquids. I will order a chest x-ray and ABG. By MRI performed on April 12, 2019 was positive for a new punctate area of acute infarct at the posterior aspect of the left frontal lobe. This appears to have occurred in the hospital. I spoke with the patient's brother Alpesh Ho this morning and explained the situation to him. I informed him that his brother will likely not do well if we have to code and intubate him. The patient's brother continues to state that he wants everything done. He states he will also discuss the situation with his sister. I will continue keeping Alpesh updated as needed. I spoke with the patient's brother Alpesh Ho again this afternoon and explained the severity of the situation. I let him know that his brother is actively dying. The patient continues to decline and is having apneic episodes with tachypnea. Chest x-ray shows left-sided infiltrates, slight worsening. ABG is still pending. Alpesh has changed the patient's CODE STATUS to a DNR/DNI. He would like us to proceed with comfort measures only. Patient at 17:30 on April 14, 2020. Procedures Performed: none - Additional Data Confirmation of as documented by pronouncing clinician: no pulse, no respirations, no heart sounds, pupils fixed and dilated Family: contacted Practitioner(Attending/PCP) notified: Yes Was code activated: No
== END 2020-04-14 17:30 | disposition expired | DRG 640 ==
LOC: ER 12:06 → MS 15:30 → INTOOBSV 15:30 → MS 16:25
PROVIDERS: ADMIT Internal Medicine; ATTEND Internal Medicine
DX: G93.41 Metabolic encephalopathy; W19.XXXA Unspecified fall, initial encounter; E87.1 Hypo-osmolality and hyponatremia; I63.81 Other cerebral infarction due to occlusion or stenosis of small artery; E87.2 Acidosis; I10 Essential (primary) hypertension; R29.6 Repeated falls; R47.01 Aphasia; E86.0 Dehydration; Z91.81 History of falling; F10.21 Alcohol dependence, in remission; N17.9 Acute kidney failure, unspecified; R22.31 Localized swelling, mass and lump, right upper limb; I48.91 Unspecified atrial fibrillation; Z79.01 Long term (current) use of anticoagulants